=== PATIENT | female | born 1995 | race American Indian/Alaskan Native ===

== ENCOUNTER 2017-08-26 19:15 | Emergency (ER) | payer BC, MEDICAID ==
[2017-08-26 19:53] LABS: Basophils % (Auto) 0.1 % (0.0-1.8); Hematocrit 40.4 % (30.3-42.9); Hemoglobin 13.3 gm/dl (10.1-14.3); Mean Corpuscular HGB Conc 33 % (30-34); Mean Corpuscular Hemoglobin 29 pg (28-32); Mean Corpuscular Volume 89 fl (79-97); Platelet Count 202 K/mm3 (140-440); Red Blood Count 4.57 M/mm3 (3.65-5.03); Red Cell Distribution Width 13.9 % (13.2-15.2); White Blood Count 11.1 K/mm3 (4.5-11.0)
[2017-08-26 20:13] LABS: Alanine Aminotransferase 39 units/L (7-56); Albumin 5.1 g/dL (3.9-5); Albumin/Globulin Ratio 1.4 %; Alkaline Phosphatase 81 units/L (35-129); Anion Gap 24 mmol/L; BUN/Creatinine Ratio 13; Blood Urea Nitrogen 10 mg/dL (7-17); Carbon Dioxide 21 mmol/L (22-30); Chloride 99.7 mmol/L (98-107); Glucose 99 mg/dL (65-100); Lipase 36 units/L (13-60); Potassium 3.9 mmol/L (3.6-5.0); Sodium 141 mmol/L (137-145); Total Protein 8.7 g/dL (6.3-8.2)
[2017-08-26] MEDS ORDERED: ZOFRAN ODT ONE (21:02)
[2017-08-26] MEDS ORDERED: ZOFRAN ODT PO ONE (21:03)
[2017-08-26 21:09] LABS: Bilirubin,Urine SM (Negative); Blood,Urine NEG (Negative); Ketones,Urine 80 mg/dL (Negative); Leukocyte Esterase,Urine NEG (Negative); Mucus,Urine 3+ /HPF; Nitrite,Urine NEG (Negative)
[2017-08-26 21:11] LABS: Protein,Urine >500 mg/dL (Negative)
[2017-08-26] MEDS ORDERED: ULTRAM PO ONE (21:27)
[2017-08-26] MEDS ORDERED: ULTRAM ONE (21:32)
[2017-08-26] MEDS ORDERED: ZOFRAN IV ONE (22:34)
[2017-08-26] MEDS ORDERED: TORADOL IV ONE (22:34)
[2017-08-26] MEDS ORDERED: MORPHINE IV ONE (22:34)
--- NOTE | 2017-08-26 22:37 | Emergency Department Report ---
ED Abdominal Pain HPI - General Chief Complaint: Abdominal Pain Stated Complaint: NAUSEA/VOMITING Time Seen by Provider: 08/26/17 22:26 Source: patient Mode of arrival: Ambulatory Limitations: No Limitations - History of Present Illness Initial Comments: 22-year-old female witha a past medical surgical history presents complaining of nausea, vomiting, abdominal pain since yesterday. Symptoms started about noon. Since she has had intermittent suprapubic burning pain that is worse prior to vomiting episodes. Patient has had nausea, vomiting with by mouth intolerance. Denies diarrhea, fever, dysuria, hematuria, vaginal discharge, or vaginal bleeding. Pain is rated 7/10 intensity and worse with palpation with no alleviating factors reported. Patient has been has had sex twice since giving 2 months ago. This is a regular partner and did have unprotected sex. Severity scale (0 -10): 10 - Related Data Previous Rx's Medication Instructions Recorded Last Taken Type Acetaminophen/Codeine [Tylenol #3] 1 tab PO Q8H PRN #15 tab 08/12/15 Unknown Rx Ondansetron [Zofran Odt] 4 mg PO TID #9 tab.rapdis 08/12/15 Unknown Rx Ibuprofen [Motrin] 600 mg PO Q8H PRN #30 tablet 08/27/17 Unknown Rx Nitrofurantoin Monohyd/M-Cryst 100 mg PO BID #14 capsule 08/27/17 Unknown Rx [Macrobid 100 mg Capsule] Ondansetron [Zofran Odt] 4 mg PO Q8HR PRN #20 tab.rapdis 08/27/17 Unknown Rx traMADol [Ultram 50 MG tab] 50 mg PO Q6HR PRN #20 tablet 08/27/17 Unknown Rx Allergies Allergy/AdvReac Type Severity Reaction Status Date / Time No Known Allergies Allergy Verified 02/15/16 11:13 ED Review of Systems ROS: Stated complaint: NAUSEA/VOMITING Other details as noted in HPI Comment: All other systems reviewed and negative Other: Constitutional: No fevers chills Eyes: No eye pain visual changes ENT: No ear pain or throat pain Neck: Denies pain Respiratory: Denies cough wheezing shortness of breath Cardiovascular: Denies chest pain, palpitations, syncope GI: As per HPI : Denies dysuria, urinary frequency, or urgency Musculoskeletal: Denies back pain Skin: Denies rash, lesions, erythema Neurologic: Denies headache, numbness, weakness Psychiatric: Denies suicidal ideation, hallucinations ED Past Medical Hx - Past Medical History Previous Medical History?: No - Surgical History Past Surgical History?: No - Social History Smoking Status: Never Smoker - Medications Home Medications: Home Medications Medication Instructions Recorded Confirmed Last Taken Type Acetaminophen/Codeine [Tylenol #3] 1 tab PO Q8H PRN #15 tab 08/12/15 Unknown Rx Ondansetron [Zofran Odt] 4 mg PO TID #9 tab.rapdis 08/12/15 Unknown Rx Ibuprofen [Motrin] 600 mg PO Q8H PRN #30 tablet 08/27/17 Unknown Rx Nitrofurantoin Monohyd/M-Cryst 100 mg PO BID #14 capsule 08/27/17 Unknown Rx [Macrobid 100 mg Capsule] Ondansetron [Zofran Odt] 4 mg PO Q8HR PRN #20 tab.rapdis 08/27/17 Unknown Rx traMADol [Ultram 50 MG tab] 50 mg PO Q6HR PRN #20 tablet 08/27/17 Unknown Rx ED Physical Exam - General Limitations: No Limitations - Other Other exam information: General: No limitations, patient is alert in no acute distress Head exam: Atraumatic, normocephalic Eyes exam: Normal appearance ENT: Dry mucous membrane Neck exam: Normal inspection, full range of motion, Respiratory exam: Clear to auscultation bilateral, no wheezes, rales, crackles Cardiovascular: Normal rate and rhythm, normal heart sounds Abdomen: Soft, nondistended, right upper quadrant tenderness, suprapubic tenderness, with normal bowel sounds, no rebound, or guarding : No external lesions, muliparous os, mild erythemia at cervix, clear discharge, no CMT or adnexal tenderness Extremity: Full range of motion normal inspection no deformity Back: Normal Inspection, full range of motion, no tenderness Neurologic: Alert, oriented x3, cranial nerves intact, no motor or sensory deficit Psychiatric: normal affect, normal mood Skin: Warm, dry, intact ED Course Vital Signs 08/26/17 08/26/17 08/26/17 19:21 19:31 21:05 Temperature 98.2 F 98.2 F 99.7 F H Pulse Rate 65 66 65 Respiratory 18 18 18 Rate Blood Pressure 130/85 130/85 140/82 Blood Pressure [Right] O2 Sat by Pulse 97 100 96 Oximetry 08/26/17 08/26/17 08/26/17 21:37 22:30 22:32 Temperature 99.0 F Pulse Rate 54 L Respiratory 18 18 Rate Blood Pressure 134/74 Blood Pressure 121/79 [Right] O2 Sat by Pulse 97 98 Oximetry 08/26/17 08/26/17 08/26/17 22:46 23:00 23:16 Temperature Pulse Rate Respiratory Rate Blood Pressure 134/74 121/79 110/58 Blood Pressure [Right] O2 Sat by Pulse 99 100 96 Oximetry 08/26/17 08/26/17 08/27/17 23:24 23:30 01:29 Temperature Pulse Rate Respiratory 18 Rate Blood Pressure 105/63 100/51 Blood Pressure [Right] O2 Sat by Pulse 98 97 Oximetry 08/27/17 08/27/17 08/27/17 04:16 04:30 04:46 Temperature Pulse Rate Respiratory Rate Blood Pressure 100/51 109/53 109/53 Blood Pressure [Right] O2 Sat by Pulse 100 100 100 Oximetry 08/27/17 05:00 Temperature Pulse Rate Respiratory Rate Blood Pressure 101/53 Blood Pressure [Right] O2 Sat by Pulse 99 Oximetry - Reevaluation(s) Reevaluation #1: 08/26/17 22:39 Patient received PO tramadol and by mouth Zofran prior to my evaluation and continues to have dry heaves Reevaluation #2: 08/27/17 05:42 Patient felt much better. Able to tolerate by mouth intake ED Medical Decision Making - Lab Data Result diagrams: 08/26/17 19:41 08/26/17 19:41 Lab Results 08/26/17 08/26/17 08/26/17 Range/Units 19:41 19:41 20:48 WBC 11.1 H (4.5-11.0) K/mm3 RBC 4.57 (3.65-5.03) M/mm3 Hgb 13.3 (10.1-14.3) gm/dl Hct 40.4 (30.3-42.9) % MCV 89 (79-97) fl MCH 29 (28-32) pg MCHC 33 (30-34) % RDW 13.9 (13.2-15.2) % Plt Count 202 (140-440) K/mm3 Lymph % (Auto) 23.1 (13.4-35.0) % [place] % (Auto) 7.5 H (0.0-7.3) % Eos % (Auto) 0.0 (0.0-4.3) % Baso % (Auto) 0.1 (0.0-1.8) % Lymph # 2.6 (1.2-5.4) K/mm3 [place] # 0.8 (0.0-0.8) K/mm3 Eos # 0.0 (0.0-0.4) K/mm3 Baso # 0.0 (0.0-0.1) K/mm3 Seg Neutrophils % 69.3 (40.0-70.0) % Seg Neutrophils # 7.7 (1.8-7.7) K/mm3 Sodium 141 (137-145) mmol/L Potassium 3.9 (3.6-5.0) mmol/L Chloride 99.7 (98-107) mmol/L Carbon Dioxide 21 L (22-30) mmol/L Anion Gap 24 mmol/L BUN 10 (7-17) mg/dL Creatinine 0.8 (0.7-1.2) mg/dL Estimated GFR > 60 ml/min BUN/Creatinine Ratio 13 % Glucose 99 (65-100) mg/dL Calcium 10.0 (8.4-10.2) mg/dL Total Bilirubin 0.50 (0.1-1.2) mg/dL AST 28 (5-40) units/L ALT 39 (7-56) units/L Alkaline Phosphatase 81 (35-129) units/L Total Protein 8.7 H (6.3-8.2) g/dL Albumin 5.1 H (3.9-5) g/dL Albumin/Globulin Ratio 1.4 % Lipase 36 (13-60) units/L Urine Color [place] (Yellow) Urine Turbidity Clear (Clear) Urine pH 5.0 (5.0-7.0) Ur Specific [place] 1.041 H (1.003-1.030) Urine Protein >500 (Negative) mg/dL Urine Glucose (UA) Neg (Negative) mg/dL Urine Ketones 80 (Negative) mg/dL Urine Blood Neg (Negative) Urine Nitrite Neg (Negative) Urine Bilirubin Sm (Negative) Urine Ictotest Negative (Negative) Urine Urobilinogen 2.0 (<2.0) mg/dL Ur Leukocyte Esterase Neg (Negative) Urine WBC (Auto) 13.0 H (0.0-6.0) /HPF Urine RBC (Auto) 3.0 (0.0-6.0) /HPF U Epithel Cells (Auto) 22.0 H (0-13.0) /HPF Urine Mucus 3+ /HPF Urine HCG, Qual Negative (Negative) - Radiology Data Radiology results: report reviewed transvaginal/pelvic ultrasound: 4.8 cm right complex adnexal cyst CT abdomen and pelvis IV contrast: Findings are consistent with diffuse mild colitis. 5.5 cm right adnexal cyst - Medical Decision Making Patient fell and better. Will be discharged home to follow up with a primary care doctor and [facility] Meds given Zofran, morphine, Toradol, D5NS - Differential Diagnosis appendicitis, UTI, PID, gastroenteritis, biliary colic, , renal co Critical Care Time: No Critical care attestation.: If time is entered above; I have spent that time in minutes in the direct care of this critically ill patient, excluding procedure time. ED Disposition Clinical Impression: Right ovarian cyst, Dehydration, Vomiting, Colitis, Urine leukocytes increased Disposition: DC-01 TO HOME OR SELFCARE Is pt being admited?: No Does the pt Need Aspirin: No Condition: Stable Instructions: Ovarian Cyst (ED), Urinary Tract Infection in Women (ED), Acute Nausea and Vomiting (ED) Additional Instructions: Take the medication as prescribed. Return is symptoms worsen. Follow up with the primary care doctor and a [facility] doctor for further evaluation. Your gonorrhea and chlamydia tests are pending and take approximately 3-4 days result. You may obtain results in medical records with a photo ID. You may also obtain results through the follow-up doctor office via medical record request. Prescriptions: Ibuprofen [Motrin] 600 mg PO Q8H PRN #30 tablet PRN Reason: Pain Nitrofurantoin Monohyd/M-Cryst [Macrobid 100 mg Capsule] 100 mg PO BID #14 capsule Ondansetron [Zofran Odt] 4 mg PO Q8HR PRN #20 tab.rapdis PRN Reason: Nausea And Vomiting traMADol [Ultram 50 MG tab] 50 mg PO Q6HR PRN #20 tablet PRN Reason: Pain Referrals: [facility] [Provider Group] - 3-5 Days JOSEPH STILES MD [Staff Physician] - 3-5 Days ([place]) ANNA MITTAL MD [Staff Physician] - 3-5 Days (primary care doctor ) Time of Disposition: 05:42
--- NOTE | 2017-08-26 22:39 | Ultrasound Report ---
FINAL REPORT PROCEDURE: US TRANSVAGINAL TECHNIQUE: Real-time transabdominal sonography in multiple planes of the pelvis was performed. transvaginal sonography was then performed to better evaluate the structures HISTORY: pelvic pain COMPARISON: No prior studies are available for comparison. FINDINGS: UTERUS Size: 6.5 x 5.0 x 3.6 cm. Endometrial thickness: 1 mm. Orientation: anteverted. Cervix: Normal. Fibroids/masses: None. RIGHT Ovary: 5.5 x 5.2 x 4.0 cm. Appearance: Hypoechoic cystic structure measuring 4.8 cm. LEFT Ovary: 3.2 x 3.2 x 1.9 cm. Appearance: Normal, with 1.4 cm follicle. Pelvic fluid: None. Other: None. IMPRESSION: Complex right adnexal cyst.
--- NOTE | 2017-08-26 22:40 | Ultrasound Report ---
FINAL REPORT PROCEDURE: US PELVIC COMPLETE TECHNIQUE: Real-time transabdominal sonography in multiple planes of the pelvis was performed. . Transvaginal sonography was then performed to better evaluate the structures HISTORY: pelvic pain COMPARISON: No prior studies are available for comparison. FINDINGS: UTERUS Size: 6.5 x 5.0 x 3.6 cm. Endometrial thickness: 1 mm. Orientation: anteverted. Cervix: Normal. Fibroids/masses: None. RIGHT Ovary: 5.5 x 5.2 x 4.0 cm. Appearance: Hypoechoic cystic structure measuring 4.8 cm. LEFT Ovary: 3.2 x 3.2 x 1.9 cm. Appearance: Normal, with 1.4 cm follicle. Pelvic fluid: None. Other: None. IMPRESSION: Complex right adnexal cyst.
[2017-08-26] MEDS ORDERED: D5NS 1,000 ML IV SCH ×2 (23:00→23:40)
[2017-08-26] MEDS ORDERED: ROCEPHIN/NS 1 GM/50 ML 1 GM/50 ML BAG IV ONE (23:12)
[2017-08-26] MEDS ORDERED: NACL ONE (23:33)
--- NOTE | 2017-08-27 00:56 | Cat Scan Report ---
FINAL REPORT EXAM: CT ABDOMEN PELVIS W CON HISTORY: ruq, and lower abd pain rlq/lllq, vomiting TECHNIQUE: Dynamic helical CT scan through the abdomen and pelvis during and again after intravenous injection of iodinated contrast. Images are reconstructed in the sagittal and coronal planes. Oral contrast was not given. PRIORS: None. FINDINGS: The lung bases are clear. The liver, gallbladder, pancreas, spleen and adrenal glands appear normal. The kidneys appear normal. There is a 5.1 x 4.6 x 5.5 cm right adnexal consistent an ovarian cyst. The uterus and left ovary appear normal. The uterus and left ovary appear normal. The stomach appears grossly within normal limits. There is diffuse thickening of the haustral folds of the colon and thickening of the wall of the left colon. There are no abnormally dilated loops of bowel. A normal-appearing appendix is identified. The abdominal aorta has a normal diameter. The bones and subcutaneous soft tissues are unremarkable for age. IMPRESSION: 1. Findings are consistent with mild diffuse colitis. 2. 5.5 cm right adnexal consistent with an ovarian cyst recommend further evaluation with ultrasound.
[2017-08-27 06:06] VITALS: BP 108/55
== END 2017-08-27 06:09 | disposition home or self-care (01) ==
LOC: ED 19:15
DX: N83.201 Unspecified ovarian cyst, right side (principal); E86.0 Dehydration; K52.9 Noninfective gastroenteritis and colitis, unspecified; R82.99 Other abnormal findings in urine
CPT/HCPCS: 36415; 74177; 76830; 76856; 80053; 81001; 81025; 83690; 85025; 87210; 87591; 99284; J0696; J1885; J2270; J2405; J7042; Q9967; Q0162

== ENCOUNTER 2018-06-03 14:53 | Emergency (ER) | payer BC, MEDICAID ==
--- NOTE | 2018-06-03 16:28 | Emergency Department Report ---
ED Animal Bite HPI - General Chief Complaint: Animal Bite Stated Complaint: DOG ATTACK Time Seen by Provider: 06/03/18 16:27 Source: patient Mode of arrival: Ambulatory Limitations: No Limitations - History of Present Illness Initial Comments: This is a 23-year-old female nontoxic in appearance with no signs of distress present ER with dog bite to left finger. Patient stated unknown dog entered her back yard and bit her. Patient states she is not up-to-date with tetanus. Uncertain if dog has rabies vaccines. Patient denies any nausea, vomiting, chest pain, shortness of breathe, fever, chills, headache, numbness or tingling. Bleeding is under control. Denies any allergies or PMH. Stated animal control has been notified by RN in triage. MD Complaint: animal bite -: This evening Left: Hand Animal: dog Animal Control Notified: Yes Description: unknown animal, immunizations unknown Mechanism: bite Severity scale (0 -10): 3 Context: unprovoked Associated Symptoms: none. denies: erythema, discharge from wound, bleeding, fever, chills, rash, loss of consciousness, cough, headache, diaphoresis, shortness of breath - Related Data Patient Tetanus UTD: No Previous Rx's Medication Instructions Recorded Last Taken Type Acetaminophen/Codeine [Tylenol #3] 1 tab PO Q8H PRN #15 tab 08/12/15 Unknown Rx Ondansetron [Zofran Odt] 4 mg PO TID #9 tab.rapdis 08/12/15 Unknown Rx Ibuprofen [Motrin] 600 mg PO Q8H PRN #30 tablet 08/27/17 Unknown Rx Nitrofurantoin Monohyd/M-Cryst 100 mg PO BID #14 capsule 08/27/17 Unknown Rx [Macrobid 100 mg Capsule] Ondansetron [Zofran Odt] 4 mg PO Q8HR PRN #20 tab.rapdis 08/27/17 Unknown Rx traMADol [Ultram 50 MG tab] 50 mg PO Q6HR PRN #20 tablet 08/27/17 Unknown Rx Acetaminophen/Codeine [Tylenol 1 tab PO Q6H PRN #12 tab 06/03/18 Unknown Rx /Codeine # 3 tab] Amoxicillin/K Clav Tab [Augmentin 1 tab PO Q12HR #20 tab 06/03/18 Unknown Rx 875 mg] Ibuprofen [Motrin] 600 mg PO Q8H PRN #30 tablet 06/03/18 Unknown Rx Allergies Allergy/AdvReac Type Severity Reaction Status Date / Time No Known Allergies Allergy Verified 06/03/18 15:00 ED Review of Systems ROS: Stated complaint: DOG ATTACK Other details as noted in HPI Constitutional: denies: chills, fever Eyes: denies: eye pain, eye discharge, vision change ENT: denies: ear pain, throat pain Respiratory: denies: cough, shortness of breath, wheezing Cardiovascular: denies: chest pain, palpitations Endocrine: no symptoms reported Gastrointestinal: denies: abdominal pain, nausea, diarrhea Genitourinary: denies: urgency, dysuria, discharge Musculoskeletal: denies: back pain, joint swelling, arthralgia Skin: denies: rash, lesions Neurological: denies: headache, weakness, paresthesias Psychiatric: denies: anxiety, depression Hematological/Lymphatic: denies: easy bleeding, easy bruising ED Past Medical Hx - Past Medical History Previous Medical History?: No - Surgical History Past Surgical History?: No - Social History Smoking Status: Never Smoker Substance Use Type: None - Medications Home Medications: Home Medications Medication Instructions Recorded Confirmed Last Taken Type Acetaminophen/Codeine [Tylenol #3] 1 tab PO Q8H PRN #15 tab 08/12/15 Unknown Rx Ondansetron [Zofran Odt] 4 mg PO TID #9 tab.rapdis 08/12/15 Unknown Rx Ibuprofen [Motrin] 600 mg PO Q8H PRN #30 tablet 08/27/17 Unknown Rx Nitrofurantoin Monohyd/M-Cryst 100 mg PO BID #14 capsule 08/27/17 Unknown Rx [Macrobid 100 mg Capsule] Ondansetron [Zofran Odt] 4 mg PO Q8HR PRN #20 tab.rapdis 08/27/17 Unknown Rx traMADol [Ultram 50 MG tab] 50 mg PO Q6HR PRN #20 tablet 08/27/17 Unknown Rx Acetaminophen/Codeine [Tylenol 1 tab PO Q6H PRN #12 tab 06/03/18 Unknown Rx /Codeine # 3 tab] Amoxicillin/K Clav Tab [Augmentin 1 tab PO Q12HR #20 tab 06/03/18 Unknown Rx 875 mg] Ibuprofen [Motrin] 600 mg PO Q8H PRN #30 tablet 06/03/18 Unknown Rx ED Physical Exam - General Limitations: No Limitations General appearance: alert, in no apparent distress - Head Head exam: Present: atraumatic, normocephalic - Eye Eye exam: Present: normal appearance Pupils: Present: normal accommodation - ENT ENT exam: Present: normal exam, mucous membranes moist - Neck Neck exam: Present: normal inspection, full ROM. Absent: tenderness, meningismus, lymphadenopathy - Respiratory Respiratory exam: Present: normal lung sounds bilaterally. Absent: respiratory distress, wheezes, rales, rhonchi, stridor, chest wall tenderness, accessory muscle use, decreased breath sounds, prolonged expiratory - Cardiovascular Cardiovascular Exam: Present: regular rate, normal rhythm, normal heart sounds. Absent: bradycardia, tachycardia, irregular rhythm, systolic murmur, diastolic murmur, rubs, gallop - GI/Abdominal GI/Abdominal exam: Present: soft, normal bowel sounds. Absent: distended, tenderness, guarding, rebound, rigid, diminished bowel sounds - Rectal Rectal exam: Present: deferred - Extremities Exam Extremities exam: Present: normal inspection, full ROM, tenderness, normal capillary refill. Absent: joint swelling - Expanded Upper Extremity Exam Left General: Present: normal inspection Shoulder Exam: Present: normal inspection, full ROM. Absent: tenderness, swelling Upper Arm exam: Present: normal inspection, full ROM. Absent: tenderness, swelling Elbow exam: Present: normal inspection, full ROM. Absent: tenderness, swelling Forearm Wrist exam: Present: normal inspection, full ROM. Absent: tenderness, swelling Hand Wrist exam: Present: normal inspection, full ROM, tenderness, abrasion. Absent: swelling, laceration, ecchymosis, deformity, crepidus, dislocation, erythema, amputation, nail avulsion, subungual hematoma Hand L/R Back: 1 - abrasion here Neuro motor exam: Present: wrist extension intact, thumb opposition intact, thumb IP flexion intact, thumb adduction intact, fingers 2-5 abduction intact Neurosensory exam: Present: 2-point discrimination, radial nerve intact, ulnar nerve intact, median nerve intact Vascular: Present: vascular compromise, normal capillary refill, radial pulse, brachial pulse, ulnar pulse - Back Exam Back exam: Present: normal inspection, full ROM - Neurological Exam Neurological exam: Present: alert, oriented X3, normal gait - Psychiatric Psychiatric exam: Present: normal affect, normal mood - Skin Skin exam: Present: warm, dry, intact, normal color. Absent: rash ED Course Vital Signs 06/03/18 15:00 Temperature 98.6 F Pulse Rate 74 Respiratory 18 Rate Blood Pressure 129/58 O2 Sat by Pulse 100 Oximetry - Reevaluation(s) Reevaluation #1: 06/03/18 18:08 Patient is speaking in full sentences with no signs of distress noted. Critical care attestation.: If time is entered above; I have spent that time in minutes in the direct care of this critically ill patient, excluding procedure time. ED Disposition Clinical Impression: Abrasion of left index finger Qualifiers: Encounter type: initial encounter Qualified Code(s): S60.411A - Abrasion of left index finger, initial encounter Dog bite Qualifiers: Encounter type: initial encounter Qualified Code(s): W54.0XXA - Bitten by dog, initial encounter Disposition: DC- TO HOME OR SELFCARE Is pt being admited?: No Does the pt Need Aspirin: No Condition: Stable Instructions: Animal Bite (ED), Abrasion (ED), Acetaminophen/Codeine (By mouth) , Acute Wound Care (ED) Additional Instructions: Follow-up with a primary care doctor in 3-5 days or if symptoms worsen and continue return to emergency room as soon as possible. Prescriptions: Acetaminophen/Codeine [Tylenol /Codeine # 3 tab] 1 tab PO Q6H PRN #12 tab PRN Reason: Pain , Severe (7-10) Amoxicillin/K Clav Tab [Augmentin 875 mg] 1 tab PO Q12HR #20 tab Ibuprofen [Motrin] 600 mg PO Q8H PRN #30 tablet PRN Reason: Pain Referrals: PRIMARY CARE, [Primary Care Provider] - 3-5 Days ADONAY FREEMAN MD [Staff Physician] - 3-5 Days [facility] [Outside] - 3-5 Days [facility] [Outside] - 3-5 Days Forms: Work/School Release Form(ED) ED Medical Decision Making - Medical Decision Making This is a 23-year-old female that presents with a dog bite. Patient is stable was examined by me. He has been clean with soap and water and a sterile dressing has been applied. Patient received rabies immunoglobulin and rabies vaccine. Patient also received tetanus booster in the ED. Patient was instructed to finish full course of rabies vaccines on days 3, 7 and 14. Patient is discharged with Augmentin, Tylenol with codeine and Motrin. Patient was referred to Follow-up with a primary care doctor in 3-5 days or if symptoms worsen and continue return to emergency room as soon as possible. At time of discharge, the patient does not seem toxic or ill in appearance. No acute signs of distress noted. Patient agrees to discharge treatment plan of care. No further questions noted by the patient.
[2018-06-03] MEDS ORDERED: hyperRAB S/D IM ONE (16:46)
[2018-06-03] MEDS ORDERED: RABAVERT RABIES VACCINE(PCEC) IM ONE (16:46)
[2018-06-03] MEDS ORDERED: BOOSTRIX IM ONE (16:46)
[2018-06-03] MEDS ORDERED: NORCO 7.5/325 PO ONE (16:47)
[2018-06-03 18:44] VITALS: BP 126/60
== END 2018-06-03 18:43 | disposition home or self-care (01) ==
LOC: ED 14:53
DX: S60.411A Abrasion of left index finger, initial encounter (principal); W54.0XXA Bitten by dog, initial encounter; Y93.89 Activity, other specified; Y92.89 Other specified places as the place of occurrence of the external cause; Y99.8 Other external cause status
CPT/HCPCS: 90375; 90471; 90675; 90715; 96372; 99282

== ENCOUNTER 2018-07-15 19:54 | Emergency (ER) | payer BC, MEDICAID ==
[2018-07-15 20:06] VITALS: BP 116/62
--- NOTE | 2018-07-15 22:27 | Emergency Department Report ---
- General Chief complaint: Skin Rash Stated complaint: SPIDER BITE ON RT ARM Time Seen by Provider: 07/15/18 22:20 Source: patient Mode of arrival: Ambulatory Limitations: No Limitations - Related Data Previous Rx's Medication Instructions Recorded Last Taken Type Acetaminophen/Codeine [Tylenol #3] 1 tab PO Q8H PRN #15 tab 08/12/15 Unknown Rx Ondansetron [Zofran Odt] 4 mg PO TID #9 tab.rapdis 08/12/15 Unknown Rx Ibuprofen [Motrin] 600 mg PO Q8H PRN #30 tablet 08/27/17 Unknown Rx Nitrofurantoin Monohyd/M-Cryst 100 mg PO BID #14 capsule 08/27/17 Unknown Rx [Macrobid 100 mg Capsule] Ondansetron [Zofran Odt] 4 mg PO Q8HR PRN #20 tab.rapdis 08/27/17 Unknown Rx traMADol [Ultram 50 MG tab] 50 mg PO Q6HR PRN #20 tablet 08/27/17 Unknown Rx Acetaminophen/Codeine [Tylenol 1 tab PO Q6H PRN #12 tab 06/03/18 Unknown Rx /Codeine # 3 tab] Amoxicillin/K Clav Tab [Augmentin 1 tab PO Q12HR #20 tab 06/03/18 Unknown Rx 875 mg] Ibuprofen [Motrin 600 MG tab] 600 mg PO Q8H PRN #30 tablet 07/15/18 Unknown Rx Sulfamethoxazole/Trimethoprim 1 each PO BID #10 tablet 07/15/18 Unknown Rx [Bactrim DS TAB] Allergies Allergy/AdvReac Type Severity Reaction Status Date / Time No Known Allergies Allergy Verified 06/03/18 15:00 Abscess Boil HPI - HPI Chief Complaint: Skin Rash Stated Complaint: SPIDER BITE ON RT ARM Time Seen by Provider: 07/15/18 22:20 Home Medications: Previous Rx's Medication Instructions Recorded Last Taken Type Acetaminophen/Codeine [Tylenol #3] 1 tab PO Q8H PRN #15 tab 08/12/15 Unknown Rx Ondansetron [Zofran Odt] 4 mg PO TID #9 tab.rapdis 08/12/15 Unknown Rx Ibuprofen [Motrin] 600 mg PO Q8H PRN #30 tablet 08/27/17 Unknown Rx Nitrofurantoin Monohyd/M-Cryst 100 mg PO BID #14 capsule 08/27/17 Unknown Rx [Macrobid 100 mg Capsule] Ondansetron [Zofran Odt] 4 mg PO Q8HR PRN #20 tab.rapdis 08/27/17 Unknown Rx traMADol [Ultram 50 MG tab] 50 mg PO Q6HR PRN #20 tablet 08/27/17 Unknown Rx Acetaminophen/Codeine [Tylenol 1 tab PO Q6H PRN #12 tab 06/03/18 Unknown Rx /Codeine # 3 tab] Amoxicillin/K Clav Tab [Augmentin 1 tab PO Q12HR #20 tab 06/03/18 Unknown Rx 875 mg] Ibuprofen [Motrin 600 MG tab] 600 mg PO Q8H PRN #30 tablet 07/15/18 Unknown Rx Sulfamethoxazole/Trimethoprim 1 each PO BID #10 tablet 07/15/18 Unknown Rx [Bactrim DS TAB] Allergies/Adverse Reactions: Allergies Allergy/AdvReac Type Severity Reaction Status Date / Time No Known Allergies Allergy Verified 06/03/18 15:00 ED Review of Systems ROS: Stated complaint: SPIDER BITE ON RT ARM Other details as noted in HPI ED Past Medical Hx - Past Medical History Previous Medical History?: No - Surgical History Past Surgical History?: No - Social History Smoking Status: Never Smoker Substance Use Type: None - Medications Home Medications: Home Medications Medication Instructions Recorded Confirmed Last Taken Type Acetaminophen/Codeine [Tylenol #3] 1 tab PO Q8H PRN #15 tab 08/12/15 Unknown Rx Ondansetron [Zofran Odt] 4 mg PO TID #9 tab.rapdis 08/12/15 Unknown Rx Ibuprofen [Motrin] 600 mg PO Q8H PRN #30 tablet 08/27/17 Unknown Rx Nitrofurantoin Monohyd/M-Cryst 100 mg PO BID #14 capsule 08/27/17 Unknown Rx [Macrobid 100 mg Capsule] Ondansetron [Zofran Odt] 4 mg PO Q8HR PRN #20 tab.rapdis 08/27/17 Unknown Rx traMADol [Ultram 50 MG tab] 50 mg PO Q6HR PRN #20 tablet 08/27/17 Unknown Rx Acetaminophen/Codeine [Tylenol 1 tab PO Q6H PRN #12 tab 06/03/18 Unknown Rx /Codeine # 3 tab] Amoxicillin/K Clav Tab [Augmentin 1 tab PO Q12HR #20 tab 06/03/18 Unknown Rx 875 mg] Ibuprofen [Motrin 600 MG tab] 600 mg PO Q8H PRN #30 tablet 07/15/18 Unknown Rx Sulfamethoxazole/Trimethoprim 1 each PO BID #10 tablet 07/15/18 Unknown Rx [Bactrim DS TAB] ED Physical Exam - General Limitations: No Limitations General appearance: alert, in no apparent distress - Head Head exam: Present: atraumatic, normocephalic - ENT ENT exam: Present: mucous membranes moist - Neurological Exam Neurological exam: Present: alert, oriented X3 - Psychiatric Psychiatric exam: Present: normal affect, normal mood - Expanded Skin Exam Expanded Type of lesion: Present: abscess Distribution of rash: LUE Description of rash: Present: erythematous, swelling, other (warm to touch) ED Course Vital Signs 07/15/18 20:03 Temperature 98.9 F Pulse Rate 73 Respiratory 14 Rate Blood Pressure 116/62 O2 Sat by Pulse 100 Oximetry ED Medical Decision Making - Medical Decision Making Patient's been evaluated by this provider fast track. Ibuprofen given for pain management. Bactrim double strength twice a day 5 days. Ibuprofen 600 mg. Follow-up with her primary care provider Dr. Topete. Critical care attestation.: If time is entered above; I have spent that time in minutes in the direct care of this critically ill patient, excluding procedure time. ED Disposition Clinical Impression: Cellulitis of right forearm Disposition: DC-01 TO HOME OR SELFCARE Is pt being admited?: No Does the pt Need Aspirin: No Condition: Stable Instructions: Cellulitis (ED) Additional Instructions: Complete antibiotics as prescribed. Take pain medication as needed follow-up with her primary care provider symptoms persist or gets worse. Prescriptions: Ibuprofen [Motrin 600 MG tab] 600 mg PO Q8H PRN #30 tablet PRN Reason: Pain Sulfamethoxazole/Trimethoprim [Bactrim DS TAB] 1 each PO BID #10 tablet Referrals: PRIMARY CARE, [Primary Care Provider] - 3-5 Days Yoselyn Hudson [Other] - 3-5 Days Forms: Work/School Release Form(ED)
[2018-07-15] MEDS ORDERED: MOTRIN PO ONE (22:30)
== END 2018-07-15 22:40 | disposition home or self-care (01) ==
LOC: ED 19:54
DX: L03.113 Cellulitis of right upper limb (principal)
CPT/HCPCS: 99282

== ENCOUNTER 2020-01-04 02:35 | Emergency (ER) | payer BC, MEDICAID ==
[2020-01-04 02:45] VITALS: BP 137/97
[2020-01-04] MEDS ORDERED: ACETAMINOPHEN 500 MG TAB PO ONE (03:24)
[2020-01-04] MEDS ORDERED: NEOMY 3.5 MG/BACIT 400 UNITS/POLY B 5000 UNITS/GM OINT PACKET TP ONE (03:24)
--- NOTE | 2020-01-04 03:31 | XRay Report ---
Right hand, 3 views INDICATION: Right index finger trauma tonight FINDINGS: The joint space is maintained. There is no fracture or dislocation. No spurring or arthriti c change. No bone lesion or periostitis. No significant abnormality. IMPRESSION: Negative study Signer Name: Barrett Olivo MD Signed: 01/04/2020 3:26 AM Workstation Name: [id number]
[2020-01-04] MEDS: IBUPROFEN 600 MG TAB PO ONE ×2 (03:35→03:42)
--- NOTE | 2020-01-04 04:09 | Emergency Department Report ---
Upper Extremity - HPI Chief Complaint: Extremity Injury, Upper Stated Complaint: FINGER PAIN Upper Extremity: Right Index Finger (pain, swelling and abrasion) Occurred When: Today Mechanism: Hit with Object (car door closed on the right index finger), Crush Severity: severe Symptoms: Yes Pain with Movement, Yes Limited Range of Movement (due to pain), Yes Swelling, Yes Laceration or Abrasion (dorsal distal right index finger), No Deformity, No Numbness, No Weakness, No Bruising/Ecchymosis Other History: Patient is a 24-year-old -[place] female with no past medical history who presents to the ED with complaint of acute onset persistent severe distal right index finger abrasion and swelling with severe pain after the car door slammed closed onto the right index finger about 1 hour ago. Patient states that she is unable to perform any active range of motion with the right index finger because of severe pain. Patient states that she is up-to-date with her tetanus vaccinations. Patient denies numbness or tingling or weakness of right index finger, headache, nausea, vomiting, fall or dizziness. ED Review of Systems ROS: Stated complaint: FINGER PAIN Other details as noted in HPI Constitutional: denies: chills, fever Eyes: denies: eye pain, eye discharge, vision change ENT: denies: ear pain, throat pain Respiratory: denies: cough, shortness of breath, wheezing Cardiovascular: denies: chest pain, palpitations Endocrine: no symptoms reported Gastrointestinal: denies: abdominal pain, nausea, diarrhea Genitourinary: denies: urgency, dysuria, discharge Musculoskeletal: joint swelling (distal right index finger swelling with abrasion), arthralgia (distal right index finger pain and sweling). denies: back pain Skin: other (Abrasion on distal right index finger with swelling and pain). denies: rash, lesions Neurological: denies: headache, weakness, paresthesias Psychiatric: denies: anxiety, depression Hematological/Lymphatic: denies: easy bleeding, easy bruising ED Past Medical Hx - Past Medical History Previous Medical History?: No - Surgical History Past Surgical History?: No - Social History Smoking Status: Never Smoker - Medications Home Medications: Home Medications Medication Instructions Recorded Confirmed Last Taken Type Dicyclomine [Bentyl] 10 mg PO QID #30 capsule 10/01/18 Unknown Rx Metoclopramide [Reglan] 10 mg PO TID #30 tab 10/01/18 Unknown Rx Pantoprazole [Protonix TAB] 40 mg PO DAILY #30 tablet 10/01/18 Unknown Rx levoFLOXacin [Levaquin TAB] 500 mg PO QDAY #10 tablet 10/01/18 Unknown Rx metroNIDAZOLE [Flagyl] 500 mg PO Q8HR #30 tablet 10/01/18 Unknown Rx oxyCODONE /ACETAMINOPHEN [Percocet 1 tab PO Q6HR PRN #10 tablet 10/01/18 Unknown Rx 5/325] Acetaminophen/Codeine [Tylenol 1 tab PO Q6H PRN #10 tab 01/04/20 Unknown Rx /Codeine # 3 tab] Cyclobenzaprine [Flexeril] 10 mg PO Q8H PRN #15 tablet 01/04/20 Unknown Rx Ibuprofen [Motrin] 600 mg PO Q8H PRN #24 tablet 01/04/20 Unknown Rx cephALEXin [Keflex] 500 mg PO Q8HR #30 cap 01/04/20 Unknown Rx Upper Extremity Exam - Exam General: Vital signs noted. No distress. Alert and acting appropriately. Head and Torso: No HEENT Abnormality, No Neck Tenderness, No Chest/Lungs Abnormality, No Abdominal Tenderness, No Back Tenderness Shoulder Exam: Yes Normal Range of Motion in Shoulder, No Shoulder Tenderness, No Clavicle Tenderness, No Shoulder Deformity, No AC Joint Tenderness Arm Exam: No Arm/Humerus Tenderness, No Arm Deformity Elbow: Yes Normal Range of Motion in Elbow, No Elbow Tenderness, No Elbow Deformity Forearm: No Forearm Tenderness, No Forearm Deformity, No Pain with Pronation, No Pain with Supination Wrist: Yes Normal ROM in Wrist, No Wrist Tenderness, No Wrist Deformity, No Snuffbox Tenderness, No Pain with Axial Thumb Compression Hand: Yes Digit Tenderness (distal right index finger laceration), Yes Normal ROM in Digit(s), No Hand Tenderness, No Hand Deformity, No Digit(s) Deformity, No Tendon Dysfunction CMS Exam: Yes Broken Skin (abrasion of distal right index finger), No Normal Distal Pulses, No Normal Capillary Refill, No Normal Distal Sensation ED Course Vital Signs 01/04/20 02:38 Temperature 98.5 F Pulse Rate 87 Respiratory 18 Rate Blood Pressure 137/97 O2 Sat by Pulse 99 Oximetry ED Medical Decision Making - Radiology Data Radiology results: report reviewed, image reviewed Right index finger x-ray shows no acute fractures or subluxations. - Medical Decision Making This is a 24-year-old female who presented to the ED with severe distal right index finger pain with abrasion and swelling after the car door slammed onto the right index finger about 1 hour ago. Patient states that she took ibuprofen prior to arrival in the ED. In the ED, patient is alert and oriented x3 and is not in distress but appears to be in significant pain. Right index finger x-ray shows no acute fractures or subluxations. The distal right index finger abrasions were cleaned thoroughly and Neosporin ointment applied. The finger was then splinted for comfort after being dressed with a 4 x 4 gauzes. The patient was discharged home on pain medications and prophylactic antibiotics and advised to follow-up with her primary care physician in 5 to 7 days for reevaluation or return to the ED immediately if symptoms get worse. - Differential Diagnosis finger fracture; finger sprain; finger contusion; abrasion Critical care attestation.: If time is entered above; I have spent that time in minutes in the direct care of this critically ill patient, excluding procedure time. ED Disposition Clinical Impression: Contusion of right index finger with damage to nail, initial encounter Sprain of right index finger Qualifiers: Encounter type: initial encounter Sprain of finger site: interphalangeal joint Qualified Code(s): S63.630A - Sprain of interphalangeal joint of right index finger, initial encounter Disposition: TO HOME OR SELFCARE Is pt being admited?: No Does the pt Need Aspirin: No Condition: Stable Instructions: Finger Sprain (ED), Abrasion (ED), Contusion in Adults (ED) Additional Instructions: The x-ray of your distal right index finger shows no acute fractures or subluxations. Therefore take pain medications and muscle relaxants as needed and follow-up with your primary care physician in 7 to 10 days for reevaluation. Return to the ED immediately if symptoms get worse. Prescriptions: Cyclobenzaprine [Flexeril] 10 mg PO Q8H PRN #15 tablet PRN Reason: Muscle Spasm cephALEXin [Keflex] 500 mg PO Q8HR #30 cap Ibuprofen [Motrin] 600 mg PO Q8H PRN #24 tablet PRN Reason: Pain Acetaminophen/Codeine [Tylenol /Codeine # 3 tab] 1 tab PO Q6H PRN #10 tab PRN Reason: Pain , Severe (7-10) Referrals: [facility] [Outside] - 7-10 days Time of Disposition: 04:15 Print Language: RWANDAN
== END 2020-01-04 04:30 | disposition home or self-care (01) ==
LOC: ED 02:35
DX: S63.630A Sprain of interphalangeal joint of right index finger, initial encounter (principal); Z79.899 Other long term (current) drug therapy; W23.0XXA Caught, crushed, jammed, or pinched between moving objects, initial encounter; Y93.89 Activity, other specified; Y92.89 Other specified places as the place of occurrence of the external cause; Y99.8 Other external cause status
CPT/HCPCS: A6250

== ENCOUNTER 2021-08-08 09:18 | Observation (INO) | payer BC, MEDICAID ==
[2021-08-08] MEDS ORDERED: LACTATED RINGERS 1,000 ML IV ONE (09:40)
[2021-08-08] MEDS ORDERED: HYDROmorphone 1 MG/1 ML INJ IV ONE (09:40)
[2021-08-08] MEDS ORDERED: PANTOPRAZOLE 40 MG INJ IV ONE (09:40)
[2021-08-08] MEDS ORDERED: METOCLOPRAMIDE 10 MG/2 ML INJ IV ONE (09:40)
--- NOTE | 2021-08-08 09:41 | Emergency Department Report ---
ED Abdominal Pain HPI - General Chief Complaint: Abdominal Pain Stated Complaint: COLITIS FLARE UP PUI?: No Time Seen by Provider: 08/08/21 09:26 Source: patient, EMS ( EMS documentation not available at time of chart dic tation . Verbal report received from emergency medical services), RN notes reviewed, old records reviewed Mode of arrival: Stretcher Limitations: No Limitations - History of Present Illness Initial Comments: The patient was evaluated in the emergency department for symptoms described in the history of present illness. He/she was evaluated in the context of the global COVID-19 pandemic, which necessitated consideration that the patient might be at risk for infection with the virus that causes COVID-19. Institutional protocols and algorithms that pertain to the evaluation of patients at risk for COVID-19 are in a state of rapid change based on information released by regulatory bodies including the CDC and federal and state organizations. These policies and algorithms were followed during the [facility]'s care in the emergency department. Please note that these policies, procedures and recommendations changed on a rapid basis. The patient is a 26-year-old female. The patient presents to the ER today with a recurrent complaint of abdominal cramping, nausea and vomiting without diarrhea. The patient reports that she was at [facility] yesterday, had a CT scan of her abdomen pelvis which demonstrated colitis, and she was discharged with antiemetic medication, as well as antibiotics. She reports persistent abdominal cramping, nausea and vomiting without diarrhea. She reports difficulty tolerating oral feeds and cannot tolerate her medications. She has taken a hot bath and hot shower, which sometimes improves her symptoms, but this time did not. She states that she has not had a colonoscopy that she can recall. She states that she is not . She denies urinary symptoms. She denies fever. She feels generally weak. She reports that she does not smoke cigarettes or marijuana she reports that she develops symptoms like this intermittently infrequently. Her last episode like this was approximately 3 to 4 months ago by her history This particular episode has been going on since Saturday (today is Saturday) Complaint: abdominal pain -: Gradual, days(s) Location: diffuse Quality: cramping Consistency: constant Improves With: nothing Worsens With: eating Associated Symptoms: nausea, vomiting, anorexia. denies: diarrhea, fever, chills, constipation, dysuria, hematemesis, hematochezia - Related Data Previous Rx's Medication Instructions Recorded Last Taken Type Dicyclomine [Bentyl] 10 mg PO QID #30 capsule 10/01/18 08/07/21 Rx Pantoprazole [Protonix TAB] 40 mg PO DAILY #30 tablet 10/01/18 08/07/21 Rx Cyclobenzaprine [Flexeril 10 MG 10 mg PO Q8H PRN #15 tablet 01/04/20 08/07/21 Rx TAB] Acetaminophen [Non-Aspirin Pain 500 mg PO Q6H PRN #30 tablet 08/11/21 Unknown Rx Relief] Metoclopramide [Reglan] 10 mg PO TID PRN #30 tab 08/11/21 Unknown Rx Ondansetron (Nf) [Zofran TAB] 8 mg PO Q8HR PRN #30 tablet 08/11/21 Unknown Rx Allergies Allergy/AdvReac Type Severity Reaction Status Date / Time No Known Allergies Allergy Verified 06/03/18 15:00 ED Review of Systems ROS: Stated complaint: COLITIS FLARE UP Other details as noted in HPI Constitutional: malaise, weakness. denies: fever Eyes: denies: eye discharge ENT: denies: epistaxis Respiratory: denies: cough Cardiovascular: denies: chest pain Gastrointestinal: abdominal pain, nausea, vomiting. denies: diarrhea Genitourinary: denies: dysuria Neurological: weakness ED Past Medical Hx - Past Medical History Previous Medical History?: Yes Additional medical history: gallbladder - Surgical History Past Surgical History?: No - Social History Smoking Status: Never Smoker - Medications Home Medications: Home Medications Medication Instructions Recorded Confirmed Last Taken Type Dicyclomine [Bentyl] 10 mg PO QID #30 capsule 10/01/18 08/09/21 08/07/21 Rx Pantoprazole [Protonix TAB] 40 mg PO DAILY #30 tablet 10/01/18 08/09/21 08/07/21 Rx Cyclobenzaprine [Flexeril 10 MG 10 mg PO Q8H PRN #15 tablet 01/04/20 08/09/21 08/07/21 Rx TAB] Acetaminophen [Non-Aspirin Pain 500 mg PO Q6H PRN #30 tablet 08/11/21 Unknown Rx Relief] Metoclopramide [Reglan] 10 mg PO TID PRN #30 tab 08/11/21 Unknown Rx Ondansetron (Nf) [Zofran TAB] 8 mg PO Q8HR PRN #30 tablet 08/11/21 Unknown Rx ED Physical Exam - General Limitations: No Limitations General appearance: alert, in no apparent distress - Head Head exam: Present: atraumatic, normocephalic - Eye Eye exam: Present: normal appearance, EOMI. Absent: nystagmus - ENT ENT exam: Present: normal exam, normal orophraynx, mucous membranes moist, normal external ear exam - Neck Neck exam: Present: normal inspection, full ROM. Absent: tenderness, meningismus - Respiratory Respiratory exam: Present: normal lung sounds bilaterally. Absent: respiratory distress, wheezes, rales, rhonchi, stridor, chest wall tenderness - Cardiovascular Cardiovascular Exam: Present: regular rate, normal rhythm, normal heart sounds. Absent: bradycardia, tachycardia, irregular rhythm, systolic murmur, diastolic murmur, rubs, gallop - GI/Abdominal GI/Abdominal exam: Present: soft. Absent: distended, tenderness, guarding, rebound, rigid, pulsatile mass - Extremities Exam Extremities exam: Present: normal inspection, full ROM, other (2+ pulses noted in the bilateral upper and lower extremities. There is no palpable cord. negative Homans sign. Muscular compartments are soft. The pelvis is stable.). Absent: pedal edema, joint swelling, calf tenderness - Back Exam Back exam: Present: normal inspection. Absent: tenderness, CVA tenderness (R), CVA tenderness (L), paraspinal tenderness, vertebral tenderness - Neurological Exam Neurological exam: Present: alert, normal gait, other (No facial droop. Tongue midline. Extraocular movements intact bilaterally. Facial sensation intact to light touch in V1, V2, V3 distribution bilaterally. 5 and a 5 strength in 4 extremities. Sensation intact to light touch in 4 extremities.). Absent: motor sensory deficit - Psychiatric Psychiatric exam: Present: normal affect, normal mood - Skin Skin exam: Present: warm, dry, intact, normal color. Absent: rash ED Course Vital Signs 08/08/21 08/08/21 08/08/21 09:22 19:31 22:08 Temperature 98.4 F 99.8 F H 99.1 F Pulse Rate 71 74 57 L Respiratory 16 Rate Blood Pressure 145/89 135/76 111/70 [Left] O2 Sat by Pulse 100 99 99 Oximetry 08/09/21 00:48 Temperature 98.4 F Pulse Rate 52 L Respiratory 14 Rate Blood Pressure 133/95 [Left] O2 Sat by Pulse 99 Oximetry - Reevaluation(s) Reevaluation #1: 08/08/21 10:35 Differential diagnosis, including but not limited to: Colitis, diverticulitis, cyclic vomiting syndrome, narcotic bowel syndrome, cannabinoid hyperemesis syndrome Assessment and plan: 26-year-old female, who is afebrile, with reassuring vital signs, with a recurrent complaint of abdominal cramping, and unopposed nausea and vomiting. Her prior CT scans have been reviewed and appreciated while at this facility. I requested her medical records from [facility]. She states that she has not had a colonoscopy. She denies urinary symptoms. She is not at this time. I do not detect any vomiting at this time. She will be given trial of antiemetics, fluids and pain medicine. She is found to be mildly hypokalemic, and we will therefore attempt oral challenge, after antiemetics have been administered. While distracted, abdomen soft and benign, without rebound, guarding or peritoneal signs. Would not perform repeat imaging at this time. I suspect that this is an exacerbation of the patient's chronic underlying conditions, and she will need to follow-up with an outpatient primary care doctor or sap portal consultant as an outpatient for definitive diagnosis. 08/08/21 13:04 Patient walking around. Still complaining of nausea. Haloperidol ordered. Potassium repletion to be administered intravenously. 08/08/21 13:46 Neither myself nor the patient's nurse have witnessed the patient vomiting. The patient endorses that she vomited. The patient's emesis bag appears to be unchanged. The patient had a CT scan of her abdomen pelvis yesterday, interpreted yesterday, interpreted at 825 a.m., demonstrating ascending and transverse colitis, characteristic of mild to moderate uncomplicated colitis The patient also had a urine drug screen which was positive for marijuana. As per her medical documentation the patient did admit to marijuana use. The patient continues to have nausea and vomiting in spite of multiple antiemetic medications administered. Given that this is her second visit in 2 days, given that she has received multiple antiemetic medications, and continues to have nausea and vomiting, given that she failed outpatient therapy, we will admit this patient for supportive care. The patient is agreeable to this plan of care. Hospital physician, Dr. Grace Norwood to admit to [facility] 08/08/21 13:50 ED Medical Decision Making - Lab Data Result diagrams: 08/11/21 08:04 08/11/21 08:04 Vital Signs 08/08/21 09:22 Temperature 98.4 F Pulse Rate 71 Respiratory 16 Rate Blood Pressure 145/89 [Left] O2 Sat by Pulse 100 Oximetry Lab Results 08/08/21 08/08/21 08/08/21 Range/Units 09:48 09:48 09:48 WBC 11.7 H (4.5-11.0) K/mm3 RBC 3.74 (3.65-5.03) M/mm3 Hgb 11.6 (10.1-14.3) gm/dl Hct 33.8 (30.3-42.9) % MCV 90 (79-97) fl MCH 31 (28-32) pg MCHC 34 (30-34) % RDW 15.3 H (13.2-15.2) % Plt Count 175 (140-440) K/mm3 Lymph % (Auto) 12.0 L (13.4-35.0) % Vigo % (Auto) 2.8 (0.0-7.3) % Eos % (Auto) 0.0 (0.0-4.3) % Baso % (Auto) 0.1 (0.0-1.8) % Lymph # (Auto) 1.4 (1.2-5.4) K/mm3 Vigo # (Auto) 0.3 (0.0-0.8) K/mm3 Eos # (Auto) 0.0 (0.0-0.4) K/mm3 Baso # (Auto) 0.0 (0.0-0.1) K/mm3 Seg Neutrophils % 85.1 H (40.0-70.0) % Seg Neutrophils # 9.9 H (1.8-7.7) K/mm3 PT 13.4 (12.2-14.9) Sec. INR 0.97 (0.87-1.13) Sodium 140 (137-145) mmol/L Potassium 3.2 L (3.6-5.0) mmol/L Chloride 104.1 (98-107) mmol/L Carbon Dioxide 21 L (22-30) mmol/L Anion Gap 18 mmol/L BUN 6 L (7-17) mg/dL Creatinine 0.5 L (0.6-1.2) mg/dL Estimated GFR > 60 ml/min BUN/Creatinine Ratio 12 % Glucose 112 H (65-100) mg/dL Calcium 8.9 (8.4-10.2) mg/dL Total Bilirubin 0.80 (0.1-1.2) mg/dL Direct Bilirubin 0.2 (0-0.2) mg/dL Indirect Bilirubin 0.6 mg/dL AST 53 H (5-40) units/L ALT 42 (7-56) units/L Alkaline Phosphatase 50 (35-129) units/L Total Protein 7.7 (6.3-8.2) g/dL Albumin 4.6 (3.9-5) g/dL Albumin/Globulin Ratio 1.5 % Lipase 33 (13-60) units/L HCG, Qual (Negative) 08/08/21 Range/Units 09:48 WBC (4.5-11.0) K/mm3 RBC (3.65-5.03) M/mm3 Hgb (10.1-14.3) gm/dl Hct (30.3-42.9) % MCV (79-97) fl MCH (28-32) pg MCHC (30-34) % RDW (13.2-15.2) % Plt Count (140-440) K/mm3 Lymph % (Auto) (13.4-35.0) % Vigo % (Auto) (0.0-7.3) % Eos % (Auto) (0.0-4.3) % Baso % (Auto) (0.0-1.8) % Lymph # (Auto) (1.2-5.4) K/mm3 Vigo # (Auto) (0.0-0.8) K/mm3 Eos # (Auto) (0.0-0.4) K/mm3 Baso # (Auto) (0.0-0.1) K/mm3 Seg Neutrophils % (40.0-70.0) % Seg Neutrophils # (1.8-7.7) K/mm3 PT (12.2-14.9) Sec. INR (0.87-1.13) Sodium (137-145) mmol/L Potassium (3.6-5.0) mmol/L Chloride (98-107) mmol/L Carbon Dioxide (22-30) mmol/L Anion Gap mmol/L BUN (7-17) mg/dL Creatinine (0.6-1.2) mg/dL Estimated GFR ml/min BUN/Creatinine Ratio % Glucose (65-100) mg/dL Calcium (8.4-10.2) mg/dL Total Bilirubin (0.1-1.2) mg/dL Direct Bilirubin (0-0.2) mg/dL Indirect Bilirubin mg/dL AST (5-40) units/L ALT (7-56) units/L Alkaline Phosphatase (35-129) units/L Total Protein (6.3-8.2) g/dL Albumin (3.9-5) g/dL Albumin/Globulin Ratio % Lipase (13-60) units/L HCG, Qual Negative (Negative) - Radiology Data Radiology results: pending, report reviewed, [place] [address] Cat Scan Report Signed Patient: SLAVA STILES MR#: [id number] : 1995 Acct:[id number] Age/Sex: 23 / F ADM Date: 09/26/18 Loc: 3A A363-[address]: ANGELINE HUFFMAN MD Ordering Physician: LISSETT PICHARDO III, MD Date of Service: 09/26/18 Procedure(s): CT abdomen pelvis w con Accession Number(s): [id number] cc: LISSETT PICHARDO III, MD FINAL REPORT EXAM: CT ABDOMEN PELVIS W CON HISTORY: abd pain TECHNIQUE: Routine axial imaging was obtained of the abdomen and pelvis following the intravenous injection of 100 cc of Omnipaque 300. Delayed imaging was obtained through the kidneys ureters and bladder. Sagittal and coronal reconstructions were reviewed. Comparison is made to the study of 08/26/2017. FINDINGS: The lung bases are clear. Pleural fluid is not seen. The liver, gallbladder, biliary tree, pancreas, spleen, and adrenal glands appear normal. The kidneys enhance normally. There is no evidence of hydronephrosis. The abdominal aorta is normal in caliber. The portal vein is widely patent. The bowel loops are normal in caliber. There are few fluid containing loops of distal ileum. The colon reveals prominence of mucosa in the ascending colon transverse colon and proximal descending colon. This is in part related to minimal air in the colon. Underlying colitis still cannot be excluded. There is no evidence of free fluid or adenopathy. The appendix is not identified with certainty. No definite inflammatory process seen in the right lower quadrant. The uterus and bladder appear normal. The skeletal structures appear well maintained. IMPRESSION: Prominence of the mucosa in the ascending transverse and descending colon which is in part related to minimal air in the colon. Underlying colitis still cannot be excluded. Appendix not identified. No definite inflammatory process seen in the right lower quadrant. Transcribed By: RB Dictated By: SHERRI HODGE MD Electronically Authenticated By: SHERRI HODGE MD Signed Date/Time: 01/03/192318 DD/ 1 TD/TT: 09/05 [facility] [address] [place] [address] Cat Scan Report Addendum Patient: SLAVA STILES MR#: [id number] : 1995 Acct:[id number] Age/Sex: 22 / F ADM Date: 08/26/17 Loc: ED Attending Dr: Ordering Physician: VINCENZO BOWENS MD Date of Service: 08/27/17 Procedure(s): CT abdomen pelvis w con Accession Number(s): [id number] cc: VINCENZO BOWENS MD ADDENDUM FINAL REPORT EXAM: CT ABDOMEN PELVIS W CON HISTORY: ruq, and lower abd pain rlq/lllq, vomiting TECHNIQUE: Dynamic helical CT scan through the abdomen and pelvis during and again after intravenous injection of iodinated contrast. Images are reconstructed in the sagittal and coronal planes. Oral contrast was not given. PRIORS: None. FINDINGS: The lung bases are clear. The liver, gallbladder, pancreas, spleen and adrenal glands appear normal. The kidneys appear normal. There is a 5.1 x 4.6 x 5.5 cm right adnexal consistent an ovarian cyst. The uterus and left ovary appear normal. The uterus and left ovary appear normal. The stomach appears grossly within normal limits. There is diffuse thickening of the haustral folds of the colon and thickening of the wall of the left colon. There are no abnormally dilated loops of bowel. A normal-appearing appendix is identified. The abdominal aorta has a normal diameter. The bones and subcutaneous soft tissues are unremarkable for age. IMPRESSION: 1. Findings are consistent with mild diffuse colitis. 2. 5.5 cm right adnexal consistent with an ovarian cyst recommend further evaluation with ultrasound. ADDENDUM FINAL REPORT A pelvic ultrasound was already performed earlier on the same date. It shows 4.8 cm complex cyst in the right ovary that is most consistent with a hemorrhagic cyst. Addendum Transcribed By: WALKER Addendum Dictated By: GAVIN SOTO MD Addendum Electronically Authenticated By: Addendum Signed Date/Time: DD/ TD/TT: 08/26/17 FINAL REPORT EXAM: CT ABDOMEN PELVIS W CON HISTORY: ruq, and lower abd pain rlq/lllq, vomiting TECHNIQUE: Dynamic helical CT scan through the abdomen and pelvis during and again after intravenous injection of iodinated contrast. Images are reconstructed in the sagittal and coronal planes. Oral contrast was not given. PRIORS: None. FINDINGS: The lung bases are clear. The liver, gallbladder, pancreas, spleen and adrenal glands appear normal. The kidneys appear normal. There is a 5.1 x 4.6 x 5.5 cm right adnexal consistent an ovarian cyst. The uterus and left ovary appear normal. The uterus and left ovary appear normal. The stomach appears grossly within normal limits. There is diffuse thickening of the haustral folds of the colon and thickening of the wall of the left colon. There are no abnormally dilated loops of bowel. A normal-appearing appendix is identified. The abdominal aorta has a normal diameter. The bones and subcutaneous soft tissues are unremarkable for age. IMPRESSION: 1. Findings are consistent with mild diffuse colitis. 2. 5.5 cm right adnexal consistent with an ovarian cyst recommend further evaluation with ultrasound. Transcribed By: WALKER Dictated By: GAVIN SOTO MD Elec tronically Authenticated By: GAVIN SOTO MD Signed Date/Time: 08/26/172053 DD/ 53 TD/TT: 08/26/172053 Critical care attestation.: If time is entered above; I have spent that time in minutes in the direct care of this critically ill patient, excluding procedure time. ED Disposition Clinical Impression: Intractable nausea and vomiting, Colitis, Abdominal pain, Hypokalemia, Marijuana use Disposition: 09 ADMITTED INPATIENT Is pt being admited?: Yes Does the pt Need Aspirin: No Condition: Good
[2021-08-08 10:07] LABS: Basophils % (Auto) 0.1 % (0.0-1.8); Hematocrit 33.8 % (30.3-42.9); Hemoglobin 11.6 gm/dl (10.1-14.3); Lymphocytes # (Auto) 1.4 K/mm3 (1.2-5.4); Mean Corpuscular HGB Conc 34 % (30-34); Mean Corpuscular Volume 90 fl (79-97); Monocytes # (Auto) 0.3 K/mm3 (0.0-0.8); Monocytes % (Auto) 2.8 % (0.0-7.3); Platelet Count 175 K/mm3 (140-440); Red Blood Count 3.74 M/mm3 (3.65-5.03); Red Cell Distribution Width 15.3 % (13.2-15.2)
[2021-08-08 10:20] LABS: INR 0.97 (0.87-1.13)
[2021-08-08 10:28] LABS: Alanine Aminotransferase 42 units/L (7-56); Albumin 4.6 g/dL (3.9-5); Bilirubin,Direct 0.2 mg/dL (0-0.2); Blood Urea Nitrogen 6 mg/dL (7-17); Calcium 8.9 mg/dL (8.4-10.2); Hemolysis Index 6
[2021-08-08 10:31] LABS: BUN/Creatinine Ratio 12
[2021-08-08] MEDS ORDERED: POTASSIUM CHLORIDE 20 MEQ 20 MEQ/100 ML BAG IV ONE (10:31)
[2021-08-08] MEDS ORDERED: POTASSIUM CHLORIDE ER 20 MEQ TAB PO ONE (10:31)
[2021-08-08] MEDS: POTASSIUM CHLORIDE 10 MEQ 10 MEQ/100 ML BAG IV SCH ×2 (11:35→13:58)
[2021-08-08] MEDS ORDERED: HALOPERIDOL LACTATE 5 MG/1 ML INJ IM STA ×2 (12:45→13:46)
[2021-08-08] MEDS ORDERED: metroNIDAZOLE/NS 500 MG/100 ML 500 MG/100 ML BAG IV ONE (13:47)
[2021-08-08] MEDS ORDERED: ONDANSETRON 4 MG/2 ML INJ IV ONE (13:49)
[2021-08-08] MEDS ORDERED: ACETAMINOPHEN 325 MG TAB PO PRN (20:04)
--- NOTE | 2021-08-08 20:23 | History and Physical Report ---
History of Present Illness Date of examination: 08/08/21 Date of admission: 08/08/21 13:51 Chief complaint: Persistent vomiting History of present illness: 26 diarrhea for the last 3 to 4 days. Female history of gastritis comes to the emergency room for abdominal cramping pain nausea and vomiting for the last 3 to 4 days. Abdominal pain level 6 on a scale of 1-10. Patient has a history of consuming cannabis. No alcohol. Patient went to [facility] yesterday and had a CAT scan of abdomen and pelvis which showed colitis patient was discharged after prescribing her Flagyl and Zofran. Patient continues to vomit and hence came to the facility for further evaluation and treatment. Patient feels weak and tired. No fever or chills. No exposure to Covid virus. Patient is vaccinated against Covid. - Past Medical History Previous Medical History?: Yes Additional medical history: gallbladder - Surgical History Past Surgical History?: No - Social History Smoking Status: Never Smoker - Medications Home Medications: Home Medications Medication Instructions Recorded Confirmed Last Taken Type Dicyclomine [Bentyl] 10 mg PO QID #30 capsule 10/01/18 Unknown Rx Metoclopramide [Reglan] 10 mg PO TID #30 tab 10/01/18 Unknown Rx Pantoprazole [Protonix TAB] 40 mg PO DAILY #30 tablet 10/01/18 Unknown Rx levoFLOXacin [Levaquin TAB] 500 mg PO QDAY #10 tablet 10/01/18 Unknown Rx metroNIDAZOLE [Flagyl] 500 mg PO Q8HR #30 tablet 10/01/18 Unknown Rx oxyCODONE /ACETAMINOPHEN [Percocet 1 tab PO Q6HR PRN #10 tablet 10/01/18 Unknown Rx 5/325] Acetaminophen/Codeine [Tylenol 1 tab PO Q6H PRN #10 tab 01/04/20 Unknown Rx /Codeine # 3 tab] Cyclobenzaprine [Flexeril] 10 mg PO Q8H PRN #15 tablet 01/04/20 Unknown Rx Ibuprofen [Motrin] 600 mg PO Q8H PRN #24 tablet 01/04/20 Unknown Rx cephALEXin [Keflex] 500 mg PO Q8HR #30 cap 01/04/20 Unknown Rx Review of Systems ROS: Constitutional no weight loss or weight gain no fever or chills HEENT no sore throat no post nasal drip no diplopia Neck no neck stiffness no lymph gland enlargement Chest and lungs no shortness of breath cough or wheezing CVS no chest pain no diaphoresis no palpitations GI persistent vomiting for 3 to 4 days. No diarrhea. Genitourinary system no dysuria no flank pain Musculoskeletal system no muscle pains no joint pains [employer] no syncope no seizures Skin no rash no itching Psychiatric no depression no homicidal or suicidal tendencies Hematologic no lymphedema or bruising Endocrine no polydipsia no polyuria no cold intolerance no heat intolerance Medications and Allergies Allergies Allergy/AdvReac Type Severity Reaction Status Date / Time No Known Allergies Allergy Verified 06/03/18 15:00 Home Medications Medication Instructions Recorded Confirmed Last Taken Type Dicyclomine [Bentyl] 10 mg PO QID #30 capsule 10/01/18 08/09/21 08/07/21 Rx Metoclopramide [Reglan] 10 mg PO TID #30 tab 10/01/18 08/09/21 08/06/21 Rx Pantoprazole [Protonix TAB] 40 mg PO DAILY #30 tablet 10/01/18 08/09/21 08/07/21 Rx levoFLOXacin [Levaquin TAB] 500 mg PO QDAY #10 tablet 10/01/18 08/09/21 08/06/21 Rx metroNIDAZOLE [Flagyl] 500 mg PO Q8HR #30 tablet 10/01/18 08/09/21 08/08/21 Rx oxyCODONE /ACETAMINOPHEN [Percocet 1 tab PO Q6HR PRN #10 tablet 10/01/18 08/09/21 08/08/21 Rx 5/325] Acetaminophen/Codeine [Tylenol 1 tab PO Q6H PRN #10 tab 01/04/20 08/09/21 08/07/21 Rx /Codeine # 3 tab] Cyclobenzaprine [Flexeril] 10 mg PO Q8H PRN #15 tablet 01/04/20 08/09/21 08/07/21 Rx Ibuprofen [Motrin] 600 mg PO Q8H PRN #24 tablet 01/04/20 08/09/21 08/08/21 Rx cephALEXin [Keflex] 500 mg PO Q8HR #30 cap 01/04/20 08/09/21 08/07/21 Rx Active Meds: Active Medications Acetaminophen (Acetaminophen 325 Mg Tab) 650 mg PO Q4H PRN PRN Reason: Pain MILD(1-3)/Fever >100.5/CASTANEDA Cyclobenzaprine HCl (Cyclobenzaprine 10 Mg Tab) 10 mg PO Q8H PRN PRN Reason: Muscle Spasm Dicyclomine HCl (Dicyclomine 10 Mg Cap) 10 mg PO QID [facility] Famotidine (Famotidine 20 Mg/2 Ml Inj) 20 mg IV BID [facility] Heparin Sodium (Porcine) (Heparin 5,000 Unit/1 Ml Vial) 5,000 unit SUB-Q Q12HR [facility] Hydromorphone HCl (Hydromorphone 1 Mg/1 Ml Inj) 0.5 mg IV Q3H PRN PRN Reason: Pain , Severe (7-10) Dextrose/Sodium Chloride (D5ns) 1,000 mls @ 100 mls/hr IV DIRECT [facility] Metronidazole (Flagyl 500 Mg/100 Ml) 500 mg in 100 mls @ 100 mls/hr IV Q8HR [facility]; Protocol Metoclopramide HCl (Metoclopramide 10 Mg/2 Ml Inj) 10 mg IV Q6H PRN PRN Reason: Nausea And Vomiting Morphine Sulfate (Morphine 2 Mg/1 Ml Inj) 2 mg IV Q4H PRN PRN Reason: Pain, Moderate (4-6) Ondansetron HCl (Ondansetron 4 Mg/2 Ml Inj) 4 mg IV Q3H PRN PRN Reason: Nausea And Vomiting Sodium Chloride (Sodium Chloride 0.9% 10 Ml Flush Syringe) 10 ml IV BID [facility] Sodium Chloride (Sodium Chloride 0.9% 10 Ml Flush Syringe) 10 ml IV PRN PRN PRN Reason: LINE FLUSH Exam - Constitutional Vitals: Temp Pulse Resp BP Pulse Ox 99.8 F H 74 16 135/76 99 08/08/21 19:31 08/08/21 19:31 08/08/21 09:22 08/08/21 19:31 08/08/21 19:31 General appearance: Present: no acute distress, well-nourished - EENT Eyes: Present: PERRL ENT: hearing intact, clear oral mucosa - Neck Neck: Present: supple, normal ROM - Respiratory Respiratory effort: normal Respiratory: bilateral: CTA - Cardiovascular Heart rate: 78 Rhythm: regular Heart Sounds: Present: S1 & S2. Absent: rub, click - Extremities Extremities: no ischemia, pulses intact, pulses symmetrical, No edema Peripheral Pulses: within normal limits - Abdominal General gastrointestinal: Present: soft, tender, non-distended, normal bowel sounds Localized gastrointestinal: tender: diffuse Female genitourinary: Present: normal - Rectal Rectal Exam: deferred - Integumentary Integumentary: Present: clear, warm, dry - Musculoskeletal Musculoskeletal: gait normal, strength equal bilaterally - Psychiatric Psychiatric: appropriate mood/affect, intact judgment & insight - Neurologic Neurologic: CNII-XII intact, moves all extremities - Allied Health Allied health notes reviewed: nursing, case management Results - Labs CBC & Chem 7: 08/08/21 09:48 08/08/21 09:48 Labs: Laboratory Last Values WBC 11.7 K/mm3 (4.5-11.0) H 08/08/21 09:48 RBC 3.74 M/mm3 (3.65-5.03) 08/08/21 09:48 Hgb 11.6 gm/dl (10.1-14.3) 08/08/21 09:48 Hct 33.8 % (30.3-42.9) 08/08/21 09:48 MCV 90 fl (79-97) 08/08/21 09:48 MCH 31 pg (28-32) 08/08/21 09:48 MCHC 34 % (30-34) 08/08/21 09:48 RDW 15.3 % (13.2-15.2) H 08/08/21 09:48 Plt Count 175 K/mm3 (140-440) 08/08/21 09:48 Lymph % (Auto) 12.0 % (13.4-35.0) L 08/08/21 09:48 [place] % (Auto) 2.8 % (0.0-7.3) 08/08/21 09:48 Eos % (Auto) 0.0 % (0.0-4.3) 08/08/21 09:48 Baso % (Auto) 0.1 % (0.0-1.8) 08/08/21 09:48 Lymph # (Auto) 1.4 K/mm3 (1.2-5.4) 08/08/21 09:48 [place] # (Auto) 0.3 K/mm3 (0.0-0.8) 08/08/21 09:48 Eos # (Auto) 0.0 K/mm3 (0.0-0.4) 08/08/21 09:48 Baso # (Auto) 0.0 K/mm3 (0.0-0.1) 08/08/21 09:48 Seg Neutrophils % 85.1 % (40.0-70.0) H 08/08/21 09:48 Seg Neutrophils # 9.9 K/mm3 (1.8-7.7) H 08/08/21 09:48 PT 13.4 Sec. (12.2-14.9) 08/08/21 09:48 INR 0.97 (0.87-1.13) 08/08/21 09:48 Sodium 140 mmol/L (137-145) 08/08/21 09:48 Potassium 3.2 mmol/L (3.6-5.0) L 08/08/21 09:48 Chloride 104.1 mmol/L (98-107) 08/08/21 09:48 Carbon Dioxide 21 mmol/L (22-30) L 08/08/21 09:48 Anion Gap 18 mmol/L 08/08/21 09:48 BUN 6 mg/dL (7-17) L 08/08/21 09:48 Creatinine 0.5 mg/dL (0.6-1.2) L 08/08/21 09:48 Estimated GFR > 60 ml/min 08/08/21 09:48 BUN/Creatinine Ratio 12 % 08/08/21 09:48 Glucose 112 mg/dL (65-100) H 08/08/21 09:48 Calcium 8.9 mg/dL (8.4-10.2) 08/08/21 09:48 Magnesium 1.90 mg/dL (1.7-2.3) 08/08/21 09:48 Total Bilirubin 0.80 mg/dL (0.1-1.2) 08/08/21 09:48 Direct Bilirubin 0.2 mg/dL (0-0.2) 08/08/21 09:48 Indirect Bilirubin 0.6 mg/dL 08/08/21 09:48 AST 53 units/L (5-40) H 08/08/21 09:48 ALT 42 units/L (7-56) 08/08/21 09:48 Alkaline Phosphatase 50 units/L (35-129) 08/08/21 09:48 Total Protein 7.7 g/dL (6.3-8.2) 08/08/21 09:48 Albumin 4.6 g/dL (3.9-5) 08/08/21 09:48 Albumin/Globulin Ratio 1.5 % 08/08/21 09:48 Lipase 33 units/L (13-60) 08/08/21 09:48 HCG, Qual Negative (Negative) 08/08/21 09:48 Short CBC 08/08/21 Range/Units 09:48 WBC 11.7 H (4.5-11.0) K/mm3 Hgb 11.6 (10.1-14.3) gm/dl Hct 33.8 (30.3-42.9) % Plt Count 175 (140-440) K/mm3 BMP 08/08/21 09:48 Sodium 140 Potassium 3.2 L Chloride 104.1 Carbon Dioxide 21 L BUN 6 L Creatinine 0.5 L Glucose 112 H Calcium 8.9 Liver Function 08/08/21 Range/Units 09:48 Total Bilirubin 0.80 (0.1-1.2) mg/dL Direct Bilirubin 0.2 (0-0.2) mg/dL AST 53 H (5-40) units/L ALT 42 (7-56) units/L Alkaline Phosphatase 50 (35-129) units/L Albumin 4.6 (3.9-5) g/dL Assessment and Plan Advance Directives: Yes (Full code) VTE prophylaxis?: Chemical Plan of care discussed with patient/family: Yes - Patient Problems (1) Intractable nausea and vomiting Current Visit: Yes Status: Acute Plan to address problem: Patient to be treated symptomatically IV Zofran and IV Reglan as necessary IV fluids for now Potassium to be supplemented (2) Hypokalemia Current Visit: Yes Status: Acute Plan to address problem: Supplemented with IV potassium and oral potassium (3) Hyperemesis Current Visit: Yes Status: Acute Plan to address problem: Secondary to use of marijuana Drug screen was ordered which is still pending (4) Marijuana use Current Visit: Yes Status: Chronic Plan to address problem: Patient counseled about marijuana use. (5) Colitis Current Visit: Yes Status: Acute Plan to address problem: Pleural CAT scan of the face [facility] report Will defer to GI Record from [place] is on the chart (6) DVT prophylaxis Current Visit: Yes Status: Acute Plan to address problem: On heparin and GI prophylaxis
[2021-08-08] MEDS: CYCLOBENZAPRINE 10 MG TAB PO PRN (20:33)
[2021-08-08] MEDS: HYDROmorphone 1 MG/1 ML INJ IV PRN (20:33)
[2021-08-08] MEDS: METOCLOPRAMIDE 10 MG/2 ML INJ IV PRN (20:33)
[2021-08-08] MEDS ORDERED: D5W/0.9% NACL 1,000 ML IV SCH (21:00)
[2021-08-08] MEDS: metroNIDAZOLE/NS 500 MG/100 ML 500 MG/100 ML BAG IV SCH (23:07)
[2021-08-08] MEDS: FAMOTIDINE 20 MG/2 ML INJ IV SCH (23:07)
[2021-08-08] MEDS: DICYCLOMINE 10 MG CAP PO SCH (23:11)
[2021-08-08] MEDS: HEPARIN 5,000 UNIT/1 ML VIAL SUB-Q SCH (23:13)
[2021-08-09] MEDS: MORPHINE 2 MG/1 ML INJ IV PRN ×2 (05:24→10:00)
[2021-08-09] MEDS: ONDANSETRON 4 MG/2 ML INJ IV PRN ×2 (05:29→09:58)
[2021-08-09 06:13] LABS: Basophils % (Auto) 0.1 % (0.0-1.8); Eosinophils % (Auto) 0.1 % (0.0-4.3); Hemoglobin 11.2 gm/dl (10.1-14.3); Lymphocytes # (Auto) 2.7 K/mm3 (1.2-5.4); Lymphocytes % (Auto) 28.5 % (13.4-35.0); Mean Corpuscular HGB Conc 34 % (30-34); Mean Corpuscular Volume 91 fl (79-97); Monocytes # (Auto) 0.5 K/mm3 (0.0-0.8); Monocytes % (Auto) 4.9 % (0.0-7.3); Platelet Count 194 K/mm3 (140-440); Red Blood Count 3.62 M/mm3 (3.65-5.03); Red Cell Distribution Width 15.7 % (13.2-15.2)
[2021-08-09] MEDS: metroNIDAZOLE/NS 500 MG/100 ML 500 MG/100 ML BAG IV SCH ×3 (06:19→22:13)
[2021-08-09 07:00] LABS: Alanine Aminotransferase 35 units/L (7-56); Albumin 4.6 g/dL (3.9-5); Blood Urea Nitrogen 7 mg/dL (7-17); Calcium 9.6 mg/dL (8.4-10.2); Hemolysis Index 4
[2021-08-09 07:07] LABS: BUN/Creatinine Ratio 10
--- NOTE | 2021-08-09 07:39 | Gastroenterology Consultation ---
History of Present Illness - Reason for Consult Consult date: 08/09/21 Colitis Requesting physician: OSKAR SALCEDO - History of Present Illness 26-year-old female who presents for recurrent abdominal pain nausea and vomiting Patient reports this is been happening perhaps up to a few times a year since she was 15 She will develop severe abdominal pain nausea and vomiting Will last for a few days to a week or 2 then resolved She reports did once have an appointment to see bead stringer but she was so sick at the time that she did not even see the doctor was just went back to the ER She has never had an endoscopic evaluation She reports currently having abdominal pain that is diffuse, cramping, stable, associated with intractable nausea and vomiting, no diarrhea she reports, nonradiating, no alleviating or exacerbating factors Patient went to [facility] yesterday and had a CAT scan of abdomen and pelvis which showed "ascending and transverse colonic wall thickening characteristic of mild to moderate uncomplicated colitis" patient was discharged after prescribing her Flagyl and Zofran. Patient continues to vomit and hence came to the facility for further evaluation and treatment. Patient feels weak and tired. No fever or chills. Medical history -ovarian cyst, recurrent colitis Family history -breast cancer maternal aunt Social history -cannabis, denies tobacco or alcohol Surgical history -denies Obtained/updated/reviewed patient's current medications Medications and Allergies Allergies Allergy/AdvReac Type Severity Reaction Status Date / Time No Known Allergies Allergy Verified 06/03/18 15:00 Home Medications Medication Instructions Recorded Confirmed Last Taken Type Dicyclomine [Bentyl] 10 mg PO QID #30 capsule 10/01/18 08/09/21 08/07/21 Rx Metoclopramide [Reglan] 10 mg PO TID #30 tab 10/01/18 08/09/21 08/06/21 Rx Pantoprazole [Protonix TAB] 40 mg PO DAILY #30 tablet 10/01/18 08/09/21 08/07/21 Rx levoFLOXacin [Levaquin TAB] 500 mg PO QDAY #10 tablet 10/01/18 08/09/21 08/06/21 Rx metroNIDAZOLE [Flagyl] 500 mg PO Q8HR #30 tablet 10/01/18 08/09/21 08/08/21 Rx oxyCODONE /ACETAMINOPHEN [Percocet 1 tab PO Q6HR PRN #10 tablet 10/01/18 08/09/21 08/08/21 Rx 5/325] Acetaminophen/Codeine [Tylenol 1 tab PO Q6H PRN #10 tab 01/04/20 08/09/21 08/07/21 Rx /Codeine # 3 tab] Cyclobenzaprine [Flexeril] 10 mg PO Q8H PRN #15 tablet 01/04/20 08/09/21 08/07/21 Rx Ibuprofen [Motrin] 600 mg PO Q8H PRN #24 tablet 01/04/20 08/09/21 08/08/21 Rx cephALEXin [Keflex] 500 mg PO Q8HR #30 cap 01/04/20 08/09/21 08/07/21 Rx Active Meds: Active Medications Acetaminophen (Acetaminophen 325 Mg Tab) 650 mg PO Q4H PRN PRN Reason: Pain MILD(1-3)/Fever >100.5/CASTANEDA Cyclobenzaprine HCl (Cyclobenzaprine 10 Mg Tab) 10 mg PO Q8H PRN PRN Reason: Muscle Spasm Last Admin: 08/08/21 20:33 Dose: 10 mg Documented by: Dicyclomine HCl (Dicyclomine 10 Mg Cap) 10 mg PO QID [facility] Last Admin: 08/08/21 23:11 Dose: 10 mg Documented by: Famotidine (Famotidine 20 Mg/2 Ml Inj) 20 mg IV BID [facility] Last Admin: 08/08/21 23:07 Dose: 20 mg Documented by: Heparin Sodium (Porcine) (Heparin 5,000 Unit/1 Ml Vial) 5,000 unit SUB-Q Q12HR [facility] Last Admin: 08/08/21 23:13 Dose: Not Given Documented by: Hydromorphone HCl (Hydromorphone 1 Mg/1 Ml Inj) 0.5 mg IV Q3H PRN PRN Reason: Pain , Severe (7-10) Last Admin: 08/08/21 20:33 Dose: 0.5 mg Documented by: Dextrose/Sodium Chloride (D5ns) 1,000 mls @ 100 mls/hr IV DIRECT [facility] Metronidazole (Flagyl 500 Mg/100 Ml) 500 mg in 100 mls @ 100 mls/hr IV Q8HR [facility]; Protocol Last Admin: 08/09/21 06:19 Dose: 100 mls/hr Documented by: Metoclopramide HCl (Metoclopramide 10 Mg/2 Ml Inj) 10 mg IV Q6H PRN PRN Reason: Nausea And Vomiting Last Admin: 08/08/21 20:33 Dose: 10 mg Documented by: Morphine Sulfate (Morphine 2 Mg/1 Ml Inj) 2 mg IV Q4H PRN PRN Reason: Pain, Moderate (4-6) Last Admin: 08/09/21 05:24 Dose: 2 mg Documented by: Ondansetron HCl (Ondansetron 4 Mg/2 Ml Inj) 4 mg IV Q3H PRN PRN Reason: Nausea And Vomiting Last Admin: 08/09/21 05:29 Dose: 4 mg Documented by: Sodium Chloride (Sodium Chloride 0.9% 10 Ml Flush Syringe) 10 ml IV BID [facility] Last Admin: 08/08/21 23:09 Dose: 10 ml Documented by: Sodium Chloride (Sodium Chloride 0.9% 10 Ml Flush Syringe) 10 ml IV PRN PRN PRN Reason: LINE FLUSH Review of Systems - Review of Systems All systems: negative (10 Systems reviewed and negative except as mentioned above in the history of present illness) Exam - Constitutional Vital Signs: Temp Pulse Resp BP Pulse Ox 98.0 F 77 16 96/57 100 08/09/21 04:45 08/09/21 04:45 08/09/21 04:45 08/09/21 04:45 08/09/21 04:45 General appearance: no acute distress - EENT Eyes: EOM intact ENT: hearing intact - Neck Neck: supple - Respiratory Respiratory effort: normal - Cardiovascular Rhythm: regular - Gastrointestinal General gastrointestinal: Present: soft, tender, normal bowel sounds - Integumentary Integumentary: Present: warm, dry - Musculoskeletal Musculoskeletal: normal - Neurologic Neurological: alert and oriented x3 - Psychiatric Psychiatric: appropriate mood/affect - Labs CBC & Chem 7: 08/09/21 05:50 08/09/21 05:50 Lab Results: Laboratory Results - last 24 hr 08/08/21 08/08/21 08/08/21 09:48 09:48 09:48 WBC 11.7 H RBC 3.74 Hgb 11.6 Hct 33.8 MCV 90 MCH 31 MCHC 34 RDW 15.3 H Plt Count 175 Lymph % (Auto) 12.0 L [place] % (Auto) 2.8 Eos % (Auto) 0.0 Baso % (Auto) 0.1 Lymph # (Auto) 1.4 [place] # (Auto) 0.3 Eos # (Auto) 0.0 Baso # (Auto) 0.0 Seg Neutrophils % 85.1 H Seg Neutrophils # 9.9 H PT 13.4 INR 0.97 Sodium 140 Potassium 3.2 L Chloride 104.1 Carbon Dioxide 21 L Anion Gap 18 BUN 6 L Creatinine 0.5 L Estimated GFR > 60 BUN/Creatinine Ratio 12 Glucose 112 H Calcium 8.9 Magnesium Total Bilirubin 0.80 Direct Bilirubin 0.2 Indirect Bilirubin 0.6 AST 53 H ALT 42 Alkaline Phosphatase 50 Total Protein 7.7 Albumin 4.6 Albumin/Globulin Ratio 1.5 Lipase 33 HCG, Qual 08/08/21 08/08/21 08/09/21 09:48 09:48 05:50 WBC 9.4 RBC 3.62 L Hgb 11.2 Hct 33.0 MCV 91 MCH 31 MCHC 34 RDW 15.7 H Plt Count 194 Lymph % (Auto) 28.5 [place] % (Auto) 4.9 Eos % (Auto) 0.1 Baso % (Auto) 0.1 Lymph # (Auto) 2.7 [place] # (Auto) 0.5 Eos # (Auto) 0.0 Baso # (Auto) 0.0 Seg Neutrophils % 66.4 Seg Neutrophils # 6.2 PT INR Sodium Potassium Chloride Carbon Dioxide Anion Gap BUN Creatinine Estimated GFR BUN/Creatinine Ratio Glucose Calcium Magnesium 1.90 Total Bilirubin Direct Bilirubin Indirect Bilirubin AST ALT Alkaline Phosphatase Total Protein Albumin Albumin/Globulin Ratio Lipase HCG, Qual Negative 08/09/21 05:50 WBC RBC Hgb Hct MCV MCH MCHC RDW Plt Count Lymph % (Auto) [place] % (Auto) Eos % (Auto) Baso % (Auto) Lymph # (Auto) [place] # (Auto) Eos # (Auto) Baso # (Auto) Seg Neutrophils % Seg Neutrophils # PT INR Sodium 141 Potassium 3.2 L Chloride 101.4 Carbon Dioxide 22 Anion Gap 21 BUN 7 Creatinine 0.7 Estimated GFR > 60 BUN/Creatinine Ratio 10 Glucose 89 Calcium 9.6 Magnesium Total Bilirubin 0.70 Direct Bilirubin Indirect Bilirubin AST 35 ALT 35 Alkaline Phosphatase 49 Total Protein 7.6 Albumin 4.6 Albumin/Globulin Ratio 1.5 Lipase HCG, Qual Assessment and Plan Given recurrent symptoms over many years highest on the differential diagnosis would be inflammatory bowel disease However, she would not tolerate a prep to undergo colonoscopy this juncture therefore recommend supportive care with antinausea medication and do not advance diet past clear liquids until patient is starting to improve She then could be discharged with close outpatient follow-up with us for a colonoscopy once her symptoms have improved enough to tolerate colonoscopy If she does develop diarrhea would recommend collecting stool for C. difficile to be thorough - Patient Problems (1) Abdominal pain Current Visit: Yes Status: Acute (2) Colitis Current Visit: Yes Status: Acute (3) Intractable nausea and vomiting Current Visit: Yes Status: Acute
[2021-08-09] MEDS ORDERED: POTASSIUM PHOSPHATE 40 MMOL in SODIUM CHLORIDE 0.9% 500 ML 500 ML IV SCH (09:00)
[2021-08-09] MEDS ORDERED: POTASSIUM CHLORIDE ER 20 MEQ TAB PO ONE (09:00)
[2021-08-09] MEDS: FAMOTIDINE 20 MG/2 ML INJ IV SCH ×2 (09:57→22:13)
[2021-08-09] MEDS: POTASSIUM CHLORIDE 10 MEQ 10 MEQ/100 ML BAG IV SCH ×4 (09:58→17:08)
[2021-08-09] MEDS: HEPARIN 5,000 UNIT/1 ML VIAL SUB-Q SCH ×2 (10:47→22:14)
[2021-08-09] MEDS: DICYCLOMINE 10 MG CAP PO SCH ×4 (10:53→23:38)
[2021-08-09] MEDS: PROCHLORPERAZINE MALEATE 10 MG TAB PO PRN (11:54)
[2021-08-09] MEDS: HYDROmorphone 1 MG/1 ML INJ IV PRN ×2 (14:21→19:47)
[2021-08-09] MEDS: METOCLOPRAMIDE 10 MG/2 ML INJ IV PRN ×2 (14:28→19:47)
--- NOTE | 2021-08-09 15:38 | Progress Note ---
Assessment and Plan Assessment and plan: #Likely infectious colitis #Intractable nausea and vomiting #Abdominal pain -Patiently recently discharged from [facility] ([facility]) on 08/07/2021 with diagnosis of colitis. Patient discharged home with Flagyl and Reglan. -GI consulted; appreciate recs -Patient admits to occasional marijuana use. She denies consumption of large volumes, and states her last use was 2 weeks ago while in [place]. -Started on IV Zofran and IV Reglan as needed for symptomatic relief; however, patient denies any relief -IV Zofran discontinued and p.o. Compazine 10 mg initiated. We will continue to monitor. -No need for C. difficile testing given patient is not having diarrhea. -If p.o. intake is not established, IV fluids can be restarted. -Trying patient on a clear liquid diet. #Hypokalemia -Potassium 3.2 -Repleted. Continue to monitor #Marijuana consumption #Substance abuse education -Counseled patient about marijuana usage and how it can contribute to abdominal pain. Patient expressed understanding -Time: +10 minutes #DVT prophylaxis -Continue heparin 5000 units every 8 (subcutaneous) Disposition Plan: Continue medical management Total Time Spent with Patient (Minutes): 35 History Interval history: No acute events overnight. Hospitalist Physical - Constitutional Vitals: Temp Pulse Resp BP Pulse Ox 98.8 F 62 18 113/73 100 08/09/21 11:08 08/09/21 11:08 08/09/21 11:08 08/09/21 11:08 08/09/21 11:08 General appearance: Present: mild distress, well-nourished - EENT Eyes: Present: PERRL, EOM intact ENT: hearing intact, clear oral mucosa, dentition normal - Neck Neck: Present: supple, normal ROM - Respiratory Respiratory effort: normal - Cardiovascular Rhythm: regular Heart Sounds: Present: S1 & S2 - Extremities Extremities: no ischemia, pulses intact, pulses symmetrical, No edema, normal temperature, normal color Peripheral Pulses: within normal limits - Abdominal General gastrointestinal: soft, tender, distended, normal bowel sounds Localized gastrointestinal: tender: LLQ - Integumentary Integumentary: Present: clear, warm, dry - Psychiatric Psychiatric: appropriate mood/affect, intact judgment & insight, memory intact, cooperative - Neurologic Neurologic: CNII-XII intact, moves all extremities - Allied Health Allied health notes reviewed: nursing HEART Score - HEART Score History: Slightly suspicious EKG: Normal Age: < 45 Risk factors: 1-2 risk factors - Critical Actions Critical Actions: 0-3 pts:0.9-1.7%risk of adverse cardiac event.Candidate for discharge Results - Labs CBC & Chem 7: 08/09/21 05:50 08/09/21 05:50 Labs: Laboratory Last Values WBC 9.4 K/mm3 (4.5-11.0) 08/09/21 05:50 RBC 3.62 M/mm3 (3.65-5.03) L 08/09/21 05:50 Hgb 11.2 gm/dl (10.1-14.3) 08/09/21 05:50 Hct 33.0 % (30.3-42.9) 08/09/21 05:50 MCV 91 fl (79-97) 08/09/21 05:50 MCH 31 pg (28-32) 08/09/21 05:50 MCHC 34 % (30-34) 08/09/21 05:50 RDW 15.7 % (13.2-15.2) H 08/09/21 05:50 Plt Count 194 K/mm3 (140-440) 08/09/21 05:50 Lymph % (Auto) 28.5 % (13.4-35.0) 08/09/21 05:50 [place] % (Auto) 4.9 % (0.0-7.3) 08/09/21 05:50 Eos % (Auto) 0.1 % (0.0-4.3) 08/09/21 05:50 Baso % (Auto) 0.1 % (0.0-1.8) 08/09/21 05:50 Lymph # (Auto) 2.7 K/mm3 (1.2-5.4) 08/09/21 05:50 [place] # (Auto) 0.5 K/mm3 (0.0-0.8) 08/09/21 05:50 Eos # (Auto) 0.0 K/mm3 (0.0-0.4) 08/09/21 05:50 Baso # (Auto) 0.0 K/mm3 (0.0-0.1) 08/09/21 05:50 Seg Neutrophils % 66.4 % (40.0-70.0) 08/09/21 05:50 Seg Neutrophils # 6.2 K/mm3 (1.8-7.7) 08/09/21 05:50 ESR 15 mm/Hr (0-20) 08/09/21 05:50 PT 13.4 Sec. (12.2-14.9) 08/08/21 09:48 INR 0.97 (0.87-1.13) 08/08/21 09:48 Sodium 141 mmol/L (137-145) 08/09/21 05:50 Potassium 3.2 mmol/L (3.6-5.0) L 08/09/21 05:50 Chloride 101.4 mmol/L (98-107) 08/09/21 05:50 Carbon Dioxide 22 mmol/L (22-30) 08/09/21 05:50 Anion Gap 21 mmol/L 08/09/21 05:50 BUN 7 mg/dL (7-17) 08/09/21 05:50 Creatinine 0.7 mg/dL (0.6-1.2) 08/09/21 05:50 Estimated GFR > 60 ml/min 08/09/21 05:50 BUN/Creatinine Ratio 10 % 08/09/21 05:50 Glucose 89 mg/dL (65-100) 08/09/21 05:50 Calcium 9.6 mg/dL (8.4-10.2) 08/09/21 05:50 Magnesium 1.90 mg/dL (1.7-2.3) 08/08/21 09:48 Total Bilirubin 0.70 mg/dL (0.1-1.2) 08/09/21 05:50 Direct Bilirubin 0.2 mg/dL (0-0.2) 08/08/21 09:48 Indirect Bilirubin 0.6 mg/dL 08/08/21 09:48 AST 35 units/L (5-40) 08/09/21 05:50 ALT 35 units/L (7-56) 08/09/21 05:50 Alkaline Phosphatase 49 units/L (35-129) 08/09/21 05:50 C-Reactive Protein 0.10 mg/dL (0.00-1.30) 08/09/21 05:50 Total Protein 7.6 g/dL (6.3-8.2) 08/09/21 05:50 Albumin 4.6 g/dL (3.9-5) 08/09/21 05:50 Albumin/Globulin Ratio 1.5 % 08/09/21 05:50 Lipase 33 units/L (13-60) 08/08/21 09:48 HCG, Qual Negative (Negative) 08/08/21 09:48 Chang/IV: Voiding Method Toilet Active Medications - Current Medications Current Medications: Generic Name Dose Route Start Last Admin Trade Name Freq PRN Reason Stop Dose Admin Acetaminophen 650 mg 08/08/21 20:04 Acetaminophen 325 Mg Tab PO Q4H PRN Pain MILD(1-3)/Fever >100.5/CASTANEDA Cyclobenzaprine HCl 10 mg 08/08/21 19:57 08/08/21 20:33 Cyclobenzaprine 10 Mg Tab PO 10 mg Q8H PRN Administration Muscle Spasm Dicyclomine HCl 10 mg 08/08/21 22:00 08/09/21 10:53 Dicyclomine 10 Mg Cap PO 10 mg QID EMMANUEL Administration Famotidine 20 mg 08/08/21 22:00 08/09/21 09:57 Famotidine 20 Mg/2 Ml Inj IV 20 mg BID EMMANUEL Administration Heparin Sodium (Porcine) 5,000 unit 08/08/21 22:00 08/09/21 10:47 Heparin 5,000 Unit/1 Ml Vial SUB-Q Not Given Q12HR EMMANUEL Hydromorphone HCl 0.5 mg 08/08/21 20:04 08/09/21 14:21 Hydromorphone 1 Mg/1 Ml Inj IV 0.5 mg Q3H PRN Administration Pain , Severe (7-10) Dextrose/Sodium Chloride 1,000 mls @ 100 mls/hr 08/08/21 21:00 D5ns IV DIRECT EMMANUEL Metronidazole 500 mg in 100 mls @ 100 mls/hr 08/08/21 22:00 08/09/21 06:19 Flagyl 500 Mg/100 Ml IV 100 mls/hr Q8HR EMMANUEL Administration Protocol Metoclopramide HCl 10 mg 08/08/21 20:04 08/09/21 14:28 Metoclopramide 10 Mg/2 Ml Inj IV 10 mg Q6H PRN Administration Nausea And Vomiting Morphine Sulfate 2 mg 08/08/21 20:04 08/09/21 10:00 Morphine 2 Mg/1 Ml Inj IV 2 mg Q4H PRN Administration Pain, Moderate (4-6) Prochlorperazine Maleate 10 mg 08/09/21 11:30 08/09/21 11:54 Prochlorperazine Maleate 10 Mg Tab PO 10 mg Q8H PRN Administration Nausea And Vomiting Sodium Chloride 10 ml 08/08/21 22:00 08/09/21 11:56 Sodium Chloride 0.9% 10 Ml Flush Syringe IV 10 ml BID EMMANUEL Administration Sodium Chloride 10 ml 08/08/21 20:04 Sodium Chloride 0.9% 10 Ml Flush Syringe IV PRN PRN LINE FLUSH Nutrition/Malnutrition Assess - Dietary Evaluation Nutrition/Malnutrition Findings: Nutrition Notes Start: 08/09/21 11:20 Freq: Status: Active Protocol: Document 08/09/21 11:20 GB (Rec: 08/09/21 11:38 GB [email or web address]) Nutrition Notes Need for Assessment generated from: MD Order Initial or Follow up Assessment Other Pertinent Diagnosis nausea, vomiting Current Diet Clear Liquids Labs/Tests 08/09: K 3.2 Pertinent Medications KCl, NaCl Height 5 ft 6 in Weight 58.967 kg [place] Body Weight (kg) 59.09 BMI 20.9 Weight change and time frame no reported weight changes Weight Status Appropriate Subjective/Other Information nausea vomiting, recurring over periods of years since age 15. 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 No Is Patient Ambulatory and/or Out of Bed Yes REE-(Tyler-St. or-ambulatory/OOB) [ 6763.846 NUTR.MSJOOB] Kcal/Kg value to use for calculation 30 Approximate Energy Requirements Using 1769 kcal/Kg Calculation Used for Recommendations Kcal/kg Additional Notes Protein: 1-1.2 g/kg @ 59k -71g Fluids: 1ml/kcal or per MD Nutrition Intervention Change Diet Order: Continue Nutrition Support: n/a Add Supplement/Snack (indicate name/kcal Ensure clear BID /protein ) Provides kCal: 240 Provides Protein (gm) 8 Goal #1 Diet to advance to soft fiber/ regular Goal #2 PO intake of meals to improve to 75% or greater during LOS Goal #3 PO intake of supplements to be 75% or greater during LOS Anticipated Discharge Needs: Home diet: minimize spicey/hot foods. Choose easily digestible foods when symptoms begin (rice, oatmeal, potatoes, crackers, etc) Follow-Up By: 08/16/21 Additional Comments PO intake meals/supplements, tolerance of meals - Attestation Statement I have reviewed and agreed w/ Malnutrition eval & tx plan: Yes
[2021-08-10] MEDS: HYDROmorphone 1 MG/1 ML INJ IV PRN ×4 (00:43→19:25)
[2021-08-10] MEDS: metroNIDAZOLE/NS 500 MG/100 ML 500 MG/100 ML BAG IV SCH ×3 (05:30→22:28)
[2021-08-10 07:30] LABS: Basophils % (Auto) 0.3 % (0.0-1.8); Eosinophils % (Auto) 0.6 % (0.0-4.3); Hematocrit 37.1 % (30.3-42.9); Hemoglobin 12.7 gm/dl (10.1-14.3); Lymphocytes # (Auto) 2.6 K/mm3 (1.2-5.4); Lymphocytes % (Auto) 33.7 % (13.4-35.0); Mean Corpuscular HGB Conc 34 % (30-34); Mean Corpuscular Volume 91 fl (79-97); Monocytes # (Auto) 0.4 K/mm3 (0.0-0.8); Platelet Count 184 K/mm3 (140-440); Red Blood Count 4.07 M/mm3 (3.65-5.03); Red Cell Distribution Width 15.1 % (13.2-15.2)
[2021-08-10] MEDS: METOCLOPRAMIDE 10 MG/2 ML INJ IV PRN ×3 (07:43→19:25)
[2021-08-10 07:54] LABS: BUN/Creatinine Ratio 10; Blood Urea Nitrogen 8 mg/dL (7-17); Calcium 9.6 mg/dL (8.4-10.2); Hemolysis Index 1
[2021-08-10] MEDS: HEPARIN 5,000 UNIT/1 ML VIAL SUB-Q SCH ×2 (10:50→22:29)
[2021-08-10] MEDS: DICYCLOMINE 10 MG CAP PO SCH ×4 (11:03→22:35)
[2021-08-10] MEDS: FAMOTIDINE 20 MG/2 ML INJ IV SCH ×2 (11:03→22:28)
--- NOTE | 2021-08-10 12:09 | Progress Note ---
Assessment and Plan Assessment and plan: #Likely infectious colitis #Intractable nausea and vomiting-improving #Abdominal pain -Patiently recently discharged from [facility] ([facility]) on 08/07/2021 with diagnosis of colitis. Patient discharged home with Flagyl and Reglan. -GI consulted; appreciate recs -Patient admits to occasional marijuana use. She denies consumption of large volumes, and states her last use was 2 weeks ago while in [place]. -Continue p.o. Compazine 10 mg every 8 hours and IV Reglan every 6 hours. We will continue to monitor. -No need for C. difficile testing given patient is not having diarrhea. -If p.o. intake is not established, IV fluids can be restarted. -Trying patient on a full liquid diet, and will transition to regular diet this evening. If meal is tolerated, patient will be discharged in morning. #Hypokalemia-resolved -Potassium 3.2 -Repleted. Continue to monitor #Marijuana consumption #Substance abuse education -Counseled patient about marijuana usage and how it can contribute to abdominal pain. Patient expressed understanding -Time: +10 minutes #DVT prophylaxis -Continue heparin 5000 units every 8 (subcutaneous) Disposition Plan: Pending possible discharge today versus tomorrow. Total Time Spent with Patient (Minutes): 30 History Interval history: No acute events overnight. Hospitalist Physical - Constitutional Vitals: Temp Pulse Resp BP Pulse Ox 99.5 F 79 18 115/78 97 08/10/21 06:56 08/10/21 06:56 08/10/21 06:56 08/10/21 06:56 08/10/21 08:00 General appearance: Present: mild distress, well-nourished - EENT Eyes: Present: PERRL, EOM intact ENT: hearing intact, clear oral mucosa, dentition normal - Neck Neck: Present: supple, normal ROM - Respiratory Respiratory effort: normal - Cardiovascular Rhythm: regular Heart Sounds: Present: S1 & S2 - Extremities Extremities: no ischemia, pulses intact, pulses symmetrical, No edema, normal temperature, normal color Peripheral Pulses: within normal limits - Abdominal General gastrointestinal: soft, tender, non-distended, normal bowel sounds - Integumentary Integumentary: Present: clear, warm, dry - Psychiatric Psychiatric: appropriate mood/affect, intact judgment & insight, memory intact, cooperative - Neurologic Neurologic: CNII-XII intact, moves all extremities - Allied Health Allied health notes reviewed: nursing HEART Score - HEART Score EKG: Normal Age: < 45 Risk factors: 1-2 risk factors - Critical Actions Critical Actions: 0-3 pts:0.9-1.7%risk of adverse cardiac event.Candidate for discharge Results - Labs CBC & Chem 7: 08/10/21 06:55 08/10/21 06:55 Labs: Laboratory Last Values WBC 7.9 K/mm3 (4.5-11.0) 08/10/21 06:55 RBC 4.07 M/mm3 (3.65-5.03) 08/10/21 06:55 Hgb 12.7 gm/dl (10.1-14.3) 08/10/21 06:55 Hct 37.1 % (30.3-42.9) 08/10/21 06:55 MCV 91 fl (79-97) 08/10/21 06:55 MCH 31 pg (28-32) 08/10/21 06:55 MCHC 34 % (30-34) 08/10/21 06:55 RDW 15.1 % (13.2-15.2) 08/10/21 06:55 Plt Count 184 K/mm3 (140-440) 08/10/21 06:55 Lymph % (Auto) 33.7 % (13.4-35.0) 08/10/21 06:55 [place] % (Auto) 5.0 % (0.0-7.3) 08/10/21 06:55 Eos % (Auto) 0.6 % (0.0-4.3) 08/10/21 06:55 Baso % (Auto) 0.3 % (0.0-1.8) 08/10/21 06:55 Lymph # (Auto) 2.6 K/mm3 (1.2-5.4) 08/10/21 06:55 [place] # (Auto) 0.4 K/mm3 (0.0-0.8) 08/10/21 06:55 Eos # (Auto) 0.0 K/mm3 (0.0-0.4) 08/10/21 06:55 Baso # (Auto) 0.0 K/mm3 (0.0-0.1) 08/10/21 06:55 Seg Neutrophils % 60.4 % (40.0-70.0) 08/10/21 06:55 Seg Neutrophils # 4.7 K/mm3 (1.8-7.7) 08/10/21 06:55 ESR 15 mm/Hr (0-20) 08/09/21 05:50 PT 13.4 Sec. (12.2-14.9) 08/08/21 09:48 INR 0.97 (0.87-1.13) 08/08/21 09:48 Sodium 137 mmol/L (137-145) 08/10/21 06:55 Potassium 3.9 mmol/L (3.6-5.0) D 08/10/21 06:55 Chloride 100.2 mmol/L (98-107) 08/10/21 06:55 Carbon Dioxide 25 mmol/L (22-30) 08/10/21 06:55 Anion Gap 16 mmol/L 08/10/21 06:55 BUN 8 mg/dL (7-17) 08/10/21 06:55 Creatinine 0.8 mg/dL (0.6-1.2) 08/10/21 06:55 Estimated GFR > 60 ml/min 08/10/21 06:55 BUN/Creatinine Ratio 10 % 08/10/21 06:55 Glucose 80 mg/dL (65-100) 08/10/21 06:55 Calcium 9.6 mg/dL (8.4-10.2) 08/10/21 06:55 Phosphorus 3.60 mg/dL (2.5-4.5) 08/10/21 06:55 Magnesium 2.10 mg/dL (1.7-2.3) 08/10/21 06:55 Total Bilirubin 0.70 mg/dL (0.1-1.2) 08/09/21 05:50 Direct Bilirubin 0.2 mg/dL (0-0.2) 08/08/21 09:48 Indirect Bilirubin 0.6 mg/dL 08/08/21 09:48 AST 35 units/L (5-40) 08/09/21 05:50 ALT 35 units/L (7-56) 08/09/21 05:50 Alkaline Phosphatase 49 units/L (35-129) 08/09/21 05:50 C-Reactive Protein 0.10 mg/dL (0.00-1.30) 08/09/21 05:50 Total Protein 7.6 g/dL (6.3-8.2) 08/09/21 05:50 Albumin 4.6 g/dL (3.9-5) 08/09/21 05:50 Albumin/Globulin Ratio 1.5 % 08/09/21 05:50 Lipase 33 units/L (13-60) 08/08/21 09:48 HCG, Qual Negative (Negative) 08/08/21 09:48 Chagn/IV: Voiding Method Condom Catheter Active Medications - Current Medications Current Medications: Generic Name Dose Route Start Last Admin Trade Name Freq PRN Reason Stop Dose Admin Acetaminophen 650 mg 08/10/21 12:00 Acetaminophen 325 Mg Tab PO Q6H EMMANUEL Cyclobenzaprine HCl 10 mg 08/08/21 19:57 08/08/21 20:33 Cyclobenzaprine 10 Mg Tab PO 10 mg Q8H PRN Administration Muscle Spasm Dicyclomine HCl 10 mg 08/08/21 22:00 08/10/21 11:03 Dicyclomine 10 Mg Cap PO 10 mg QID EMMANUEL Administration Famotidine 20 mg 08/08/21 22:00 08/10/21 11:03 Famotidine 20 Mg/2 Ml Inj IV 20 mg BID EMMANUEL Administration Heparin Sodium (Porcine) 5,000 unit 08/08/21 22:00 08/10/21 10:50 Heparin 5,000 Unit/1 Ml Vial SUB-Q Not Given Q12HR EMMANUEL Hydromorphone HCl 0.5 mg 08/08/21 20:04 08/10/21 07:44 Hydromorphone 1 Mg/1 Ml Inj IV 0.5 mg Q3H PRN Administration Pain , Severe (7-10) Dextrose/Sodium Chloride 1,000 mls @ 100 mls/hr 08/08/21 21:00 D5ns IV DIRECT EMMANUEL Metronidazole 500 mg in 100 mls @ 100 mls/hr 08/08/21 22:00 08/10/21 06:49 Flagyl 500 Mg/100 Ml IV Infused Q8HR EMMANUEL Infusion Protocol Metoclopramide HCl 10 mg 08/08/21 20:04 08/10/21 07:43 Metoclopramide 10 Mg/2 Ml Inj IV 10 mg Q6H PRN Administration Nausea And Vomiting Morphine Sulfate 2 mg 08/08/21 20:04 08/09/21 10:00 Morphine 2 Mg/1 Ml Inj IV 2 mg Q4H PRN Administration Pain, Moderate (4-6) Prochlorperazine Maleate 10 mg 08/09/21 11:30 08/09/21 11:54 Prochlorperazine Maleate 10 Mg Tab PO 10 mg Q8H PRN Administration Nausea And Vomiting Sodium Chloride 10 ml 08/08/21 22:00 08/10/21 11:03 Sodium Chloride 0.9% 10 Ml Flush Syringe IV 10 ml BID EMMANUEL Administration Sodium Chloride 10 ml 08/08/21 20:04 Sodium Chloride 0.9% 10 Ml Flush Syringe IV PRN PRN LINE FLUSH Nutrition/Malnutrition Assess - Dietary Evaluation Nutrition/Malnutrition Findings: Nutrition Notes Start: 08/09/21 11:20 Freq: Status: Active Protocol: Document 08/09/21 11:20 GB (Rec: 08/09/21 11:38 GB [email or web address]) Nutrition Notes Need for Assessment generated from: MD Order Initial or Follow up Assessment Other Pertinent Diagnosis nausea, vomiting Current Diet Clear Liquids Labs/Tests 08/09: K 3.2 Pertinent Medications KCl, NaCl Height 5 ft 6 in Weight 58.967 kg [place] Body Weight (kg) 59.09 BMI 20.9 Weight change and time frame no reported weight changes Weight Status Appropriate Subjective/Other Information nausea vomiting, recurring over periods of years since age 15. 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 No Is Patient Ambulatory and/or Out of Bed Yes REE-([place]-St. Jeor-ambulatory/OOB) [ 1743.846 NUTR.MSJOOB] Kcal/Kg value to use for calculation 30 Approximate Energy Requirements Using 1769 kcal/Kg Calculation Used for Recommendations Kcal/kg Additional Notes Protein: 1-1.2 g/kg @ 59k -71g Fluids: 1ml/kcal or per MD Nutrition Intervention Change Diet Order: Continue Nutrition Support: n/a Add Supplement/Snack (indicate name/kcal Ensure clear BID /protein ) Provides kCal: 240 Provides Protein (gm) 8 Goal #1 Diet to advance to soft fiber/ regular Goal #2 PO intake of meals to improve to 75% or greater during LOS Goal #3 PO intake of supplements to be 75% or greater during LOS Anticipated Discharge Needs: Home diet: minimize spicey/hot foods. Choose easily digestible foods when symptoms begin (rice, oatmeal, potatoes, crackers, etc) Follow-Up By: 08/16/21 Additional Comments PO intake meals/supplements, tolerance of meals - Attestation Statement I have reviewed and agreed w/ Malnutrition eval & tx plan: Yes
[2021-08-10] MEDS: ACETAMINOPHEN 325 MG TAB PO SCH ×2 (12:32→21:29)
[2021-08-10] MEDS: PROCHLORPERAZINE MALEATE 10 MG TAB PO PRN (17:31)
--- NOTE | 2021-08-10 20:54 | Gastroenterology Progress Note ---
Assessment and Plan concerning for IBD, but gradually improving However, she would not tolerate a prep to undergo colonoscopy this juncture therefore recommend supportive care with antinausea medication and advance diet as tolerated She then could be discharged with close outpatient follow-up with us for a colonoscopy once her symptoms have improved enough to tolerate colonoscopy GI will sign off, if she does not continue to improve please call us back and we can provide guidance on empiric steroids - Patient Problems (1) Abdominal pain Current Visit: Yes Status: Acute (2) Colitis Current Visit: Yes Status: Acute (3) Intractable nausea and vomiting Current Visit: Yes Status: Acute Subjective Date of service: 08/10/21 Principal diagnosis: Colitis Interval history: pt seen this am; mildly improved compared to yesterday Objective - Constitutional Vitals: Temp Pulse Resp BP Pulse Ox 99.1 F 65 15 106/69 100 08/10/21 17:17 08/10/21 17:17 08/10/21 17:17 08/10/21 17:17 08/10/21 17:17 General appearance: no acute distress - EENT Eyes: EOM intact - Respiratory Respiratory effort: normal - Labs CBC & Chem 7: 08/10/21 06:55 08/10/21 06:55 Labs: Laboratory Results - last 24 hr 08/10/21 08/10/21 06:55 06:55 WBC 7.9 RBC 4.07 Hgb 12.7 Hct 37.1 MCV 91 MCH 31 MCHC 34 RDW 15.1 Plt Count 184 Lymph % (Auto) 33.7 [place] % (Auto) 5.0 Eos % (Auto) 0.6 Baso % (Auto) 0.3 Lymph # (Auto) 2.6 [place] # (Auto) 0.4 Eos # (Auto) 0.0 Baso # (Auto) 0.0 Seg Neutrophils % 60.4 Seg Neutrophils # 4.7 Sodium 137 Potassium 3.9 D Chloride 100.2 Carbon Dioxide 25 Anion Gap 16 BUN 8 Creatinine 0.8 Estimated GFR > 60 BUN/Creatinine Ratio 10 Glucose 80 Calcium 9.6 Phosphorus 3.60 Magnesium 2.10
[2021-08-11] MEDS: MORPHINE 2 MG/1 ML INJ IV PRN (04:05)
[2021-08-11] MEDS: METOCLOPRAMIDE 10 MG/2 ML INJ IV PRN (04:07)
[2021-08-11] MEDS: ACETAMINOPHEN 325 MG TAB PO SCH ×3 (04:22→12:38)
[2021-08-11] MEDS: metroNIDAZOLE/NS 500 MG/100 ML 500 MG/100 ML BAG IV SCH ×2 (06:16→14:00)
[2021-08-11] MEDS: PROCHLORPERAZINE MALEATE 10 MG TAB PO PRN (06:28)
[2021-08-11 08:34] LABS: Basophils % (Auto) 0.3 % (0.0-1.8); Eosinophils # (Auto) 0.1 K/mm3 (0.0-0.4); Eosinophils % (Auto) 1.2 % (0.0-4.3); Hematocrit 35.4 % (30.3-42.9); Hemoglobin 11.8 gm/dl (10.1-14.3); Mean Corpuscular HGB Conc 33 % (30-34); Mean Corpuscular Volume 91 fl (79-97); Monocytes # (Auto) 0.4 K/mm3 (0.0-0.8); Monocytes % (Auto) 6.9 % (0.0-7.3); Platelet Count 179 K/mm3 (140-440); Red Blood Count 3.88 M/mm3 (3.65-5.03); Red Cell Distribution Width 14.8 % (13.2-15.2)
[2021-08-11 08:44] LABS: Blood Urea Nitrogen 6 mg/dL (7-17); Calcium 9.3 mg/dL (8.4-10.2); Hemolysis Index 3
[2021-08-11 08:48] LABS: BUN/Creatinine Ratio 9
[2021-08-11] MEDS: HEPARIN 5,000 UNIT/1 ML VIAL SUB-Q SCH (09:10)
[2021-08-11] MEDS: DICYCLOMINE 10 MG CAP PO SCH ×2 (09:11→14:00)
[2021-08-11] MEDS: FAMOTIDINE 20 MG/2 ML INJ IV SCH (09:11)
[2021-08-11] MEDS: CYCLOBENZAPRINE 10 MG TAB PO PRN (09:40)
[2021-08-11 13:53] VITALS: BP 107/67
--- NOTE | 2021-08-11 14:25 | Discharge Summary ---
Providers - Providers Date of Admission: 08/08/21 13:51 Date of discharge: 08/11/21 Attending physician: DOMINAG SALGADO MD 08/08/21 20:04 Consult to Physician [CONS] Routine Comment: Consulting Provider: ELISE BATRES Physician Instructions: Reason For Exam: Colitis 08/08/21 20:11 Consult to Dietitian/Nutrition [CONS] Routine Physician Instructions: Reason For Exam: Reason for Consult: Pt needs oral supplement Primary care physician: EMMANUEL ROSAS Hospitalization Reason for admission: Inability to tolerate p.o. intake Condition: Good Pertinent studies: Reviewed. Procedures: None. Hospital course: Patient is a 26-year-old female presenting with worsening abdominal pain and diarrhea for the prior 3 to 4 days. She has a history of gastritis. The patient has been unable to tolerate p.o. intake for the same 3 to 4 days. She described her pain as a 6 out of 10. The patient was previously evaluated at [facility] and was shown to have colitis via CT abdomen/pelvis. There she was discharged home with Flagyl and Zofran. She presented because she was unable to tolerate p.o. intake. The patient was evaluated by GI who has concerns for possible irritable bowel disease; however, the patient cannot undergo colonoscopy during this current episode. The patient was slowly reintroduced back to solid foods with her symptoms managed medically (Flagyl, Zofran, Reglan, Compazine). The patient was counseled on close follow-up with gastroenterology, and she expressed understanding. Disposition: 01 HOME / SELF CARE / HOMELESS Final Discharge Diagnosis (Prints w/discharge instructions): Colitis Time spent for discharge: 35 min Core Measure Documentation - Palliative Care Palliative Care/ Comfort Measures: Not Applicable - Core Measures Any of the following diagnoses?: none - VTE Discharge Requirements Deep Vein Thrombosis/Pulmonary Embolism Present on Admission: No Has pt received <5 days of overlap therapy or INR<2.0: No Anticoagulant overlap therapy prescribed at discharge: No (Not applicable) Contraindication No Overlap Therapy order at DC: Not Indicated (Not applicable) - Acute MO Discharge Requirements Aspirin at discharge: No Reason for no aspirin on DC: Medical contraindication (Not applicable) JESS/ARB for LVSD if EF <40%: Not Applicable Reason for no JESS/ARB: Medical contraindication Beta kelton at discharge: No (Not applicable) Reason for no beta kelton on DC: Medical contraindication Statin for LDL = or >100 mg/dl on DC: Not Applicable (Not applicable) Reason for no statin on DC: Medical contraindication (Not applicable) - Heart Failure Discharge Requirements JESS/ARB for LVSD if EF <40%: Not Applicable Reason for no JESS/ARB: Medical contraindication Beta kelton at discharge: No (Not applicable) Reason for no beta kelton on DC: Medical contraindication - Stroke Discharge Requirements Statin for LDL = or >70 mg/dl on DC: Not Applicable Reason for no statin on DC: Not Indicated Anticoag for atrial fib/atrial flutter: Not Applicable Reason for no anticoag for AF/F on DC: Not Indicated Antithrombotic for ischemic stroke: No Reason for no antithrombotic on DC: Not Indicated Exam - Constitutional Vitals: Temp Pulse Resp BP Pulse Ox 99.0 F 71 18 107/67 100 08/11/21 12:18 08/11/21 05:55 08/11/21 12:18 08/11/21 12:18 08/11/21 05:55 General appearance: Present: mild distress - EENT Eyes: Present: PERRL, EOM intact ENT: hearing intact, clear oral mucosa, dentition normal - Neck Neck: Present: supple, normal ROM - Respiratory Respiratory effort: normal - Cardiovascular Rhythm: regular Heart Sounds: Present: S1 & S2 - Extremities Extremities: no ischemia, pulses intact, pulses symmetrical, No edema, normal temperature, normal color Peripheral Pulses: within normal limits - Abdominal General gastrointestinal: Present: soft, tender, non-distended, normal bowel sounds Localized gastrointestinal: tender: LLQ Female genitourinary: Present: deferred - Rectal Rectal Exam: deferred - Integumentary Integumentary: Present: clear, warm, dry - Musculoskeletal Musculoskeletal: strength equal bilaterally - Psychiatric Psychiatric: appropriate mood/affect, intact judgment & insight, memory intact, cooperative - Neurologic Neurologic: CNII-XII intact, moves all extremities - Allied Health Allied health notes reviewed: nursing Plan Health Concerns: Return to the ER if you experience worsening abdominal pain, inability to tolerate oral intake, fevers, chills, or uncontrollable nausea or vomiting. Assessment: Discharging home with PCP follow up. Follow up with GI (Dr. Painter) in 2 weeks. Follow up with: IRVIN PAINTER MD [Staff Physician] - 14 Days EMMANUEL ROSAS MD [Primary Care Provider] - 3-5 Days Prescriptions: Acetaminophen [Non-Aspirin Pain Relief] 500 mg PO Q6H PRN #30 tablet PRN Reason: Pain, Moderate (4-6) Metoclopramide [Reglan] 10 mg PO TID PRN #30 tab PRN Reason: Nausea Ondansetron (Nf) [Zofran TAB] 8 mg PO Q8HR PRN #30 tablet PRN Reason: Nausea
== END 2021-08-11 14:00 | disposition home or self-care (01) ==
LOC: ED 09:18 → 3A 13:51
PROVIDERS: ADMIT Internal Medicine; ATTEND Student in an Organized Health Care Education/Training Program
DX: K52.9 Noninfective gastroenteritis and colitis, unspecified (principal); E87.6 Hypokalemia; R11.2 Nausea with vomiting, unspecified; R10.9 Unspecified abdominal pain; F12.90 Cannabis use, unspecified, uncomplicated
CPT/HCPCS: 36415; 80048; 80053; 80076; 83690; 83735; 84100; 84703; 85025; 85610; 85652; 86140; 96361; 96365; 96366; 96367; 96368; 96372; 96375; 96376; 99284; C9113; G0378; J1170; J1630; J1644; J1956; J2270; J2405; J2765; J3480; J7120; Q0164